=== PATIENT | male | born 1970 | race Caucasian/White ===

== ENCOUNTER 2016-12-10 21:01 | Emergency (ER) | payer MEDICAID, OTHER ==
[~2016-12-10 21:01] MED LIST: XANA0.5T PO
[2016-12-10] MEDS ORDERED: KETOROLAC 30 MG/ML VIAL (J1885) As Ordered ONE (23:04)
[2016-12-10 23:13] LABS: BASO # 0.3 K/mm3 (0.0-0.2); BASO % 2.9 % (0.0-1.0); EOS # 0.3 K/mm3 (0.0-0.50); EOS % 3.2 % (0.0-3.0); LARGE UNSTAINED CELL # 0.3 K/mm3 (0.0-0.4); LARGE UNSTAINED CELL % 2.6 % (0.0-4.0); LYMPH % 27.8 % (24.0-44.0); MEAN CORPUSCULAR HEMOGLOBIN 29.7 pg (27.0-33.0); MEAN CORPUSCULAR HGB CONC 33.2 g/dl (32.0-36.5); MEAN CORPUSCULAR VOLUME 89.6 fl (80.0-96.0); MONO # 0.7 K/mm3 (0.0-0.8); MONO % 7.4 % (0.0-5.0); NEUTROPHILS # 5.6 K/mm3 (1.8-7.7); NEUTROPHILS % 56.2 % (36.0-66.0); PLATELET COUNT, AUTOMATED 258 k/mm3 (150-450); RED CELL DISTRIBUTION WIDTH 13.6 % (11.5-14.5)
[2016-12-10 23:34] LABS: ALBUMIN 3.8 GM/DL (3.2-5.2); ALBUMIN/GLOBULIN RATIO 1.31 (1.00-1.93); ALKALINE PHOSPHATASE 100 U/L (45-117); ALT/SGPT 47 U/L (12-78); ANION GAP 9 MEQ/L (8-16); AST/SGOT 20 U/L (15-37); BILIRUBIN,DIRECT < 0.1 MG/DL (0.0-0.2); BILIRUBIN,TOTAL 0.4 MG/DL (0.2-1.0); BLOOD UREA NITROGEN 15 MG/DL (7-18); CALCIUM LEVEL 8.8 MG/DL (8.5-10.1); CARBON DIOXIDE LEVEL 27 MEQ/L (21-32); CHLORIDE LEVEL 106 MEQ/L (98-107); CREATININE FOR GFR 1.13 MG/DL (0.70-1.30); GLOMERULAR FILTRATION RATE > 60.0 (>60); GLUCOSE, FASTING 95 MG/DL (70-105); POTASSIUM SERUM 4.3 MEQ/L (3.5-5.1); SODIUM LEVEL 142 MEQ/L (136-145); TOTAL PROTEIN 6.7 GM/DL (6.4-8.2)
[2016-12-10] MEDS ORDERED: ISOVUE-370 76% 100ML VIAL (Q9967) As Ordered ONE (23:51)
--- NOTE | 2016-12-11 00:30 | REPUSA ---
CLINICAL HISTORY: Abdominal pain. TECHNIQUE: Multiple axial, sagittal and coronal CT images were obtained through the abdomen and pelvi s after administration of intravenous contrast material. COMMENTS: The liver is mildly enlarged with decreased attenuation without mass or defect. There is no intra or extrahepatic biliary ductal dilatation. The spleen is normal. The gallbladder is within normal limits . The pancreas is of normal contour and attenuation characteristics. There is no evidence of adrenal mass. Both kidneys demonstrate prompt and equal nephrograms. The kidneys are normal in size, shape and conf iguration. There is no evidence of renal or ureteral mass. No renal or ureteral calculi are identifie d. There is no hydroureter or hydronephrosis. Diffuse thickening of the tip of the appendix. Surrounding free fluid and fat stranding. There is no bowel wall thickening. No evidence for small or large bowel obstruction. There is no evidence of abdo nuno ascites or lymphadenopathy. There is no evidence of intrinsic or extrinsic bladder mass. There is no pelvic ascites or lymphadeno maria c. Mild prostatomegaly. Diffuse thickening of the wall of the bladder. Images of the lung bases show no evidence of pleural or parenchymal mass. There are no pleural effusi ons. The bony structures are free of lytic or blastic lesions. Bilateral fat containing inguinal hernias without incarceration. IMPRESSION: Mild changes of acute appendicitis. Surrounding fat stranding and free fluid. Bilateral fat containing inguinal hernias without incarceration. Hepatomegaly with fatty liver infiltration. Thank you for your kind referral of this patient.
[2016-12-11] MEDS ORDERED: NORCO 5/325MG TABLET (BULK) As Ordered ONE (01:50)
--- NOTE | 2016-12-11 02:02 | EDDOCDS ---
Physician Documentation [facility] Name: Khai Reyes Age: 46 yrs Sex: Male : 1970 Arrival Date: 12/10/2016 Time: 21:01 Bed I2 / M2 Private MD: NONE Disposition: 12/11/16 01:41 Discharged to Home/Self Care. Impression: Inguinal hernia - BILATERAL, Other abdominal pain. - Condition is Stable. - Discharge Instructions: Abdominal Pain, Adult, Inguinal Hernia, Adult. - Prescriptions for [place] 5- 325 mg Oral Tablet - take 1 tablet by ORAL route every 6 hours As needed MDD: 4 tabs; 10 tablet. - Medication Reconciliation, Local Pharmacy Hours form. - Follow up: Shaheen Lucia MD; When: 1 - 2 days; Reason: Recheck today's complaints, Continuance of care. - Problem is new. - Symptoms have improved. Historical: - Allergies: Codeine Sulfate; PENICILLINS; - Home Meds: 1. Xanax 0.5 mg Oral tab 1 tab 3 times per day (Last dose: 12/10/2016 12:00) 2. losartan oral oral Unknown once daily for Hypertension (Last dose: 12/09/2016) 3. allopurinol 100 mg Oral tab 1 tab nightly for Gout (Last dose: 12/09/2016) - PMHx: Anxiety; Gout; Hypertension; - PSHx: Orthopedic Surgery; Hernia repair; achilles tendon surgery; - Social history: Smoking status: Patient states was never smoker of tobacco. No barriers to communication noted, The patient speaks fluent Kinyarwanda, Speaks appropriately for age. - Family history: Not pertinent. - : The pt / caregiver states he / she is not on anticoagulants. Home medication list is obtained from the patient. - Exposure Risk Screening:: None identified. Vital Signs: 12/10 21:03 BP 157 / 95; Pulse 85; Resp 18 S; Temp 97.3(O); Pulse Ox 98% on R/A; Weight 99.79 kg / dd6 220 lbs (R); Height 5 ft. 8 in. (172.72 cm) (R); 12/11 01:51 BP 133 / 89; Pulse 55; Resp 18; Temp 97; Pulse Ox 98% ; jlm 12/10 21:03 Body Mass Index 33.45 (99.79 kg, 172.72 cm) dd6 MDM: 12/10 22:25 [facility] Payment Agreement was scanned into [employer] and attached to record. kf3 22:44 Undress patient appropriately for examination ordered. mo1 22:44 IV Saline Lock ordered. mo1 22:44 NS 0.9% 1000 ml IV at bolus once ordered. mo1 22:45 Basic Metabolic Profile Ordered. EDMS 22:45 CBC with Diff Ordered. EDMS 22:45 Liver Profile Ordered. EDMS 22:45 Urinalysis Ordered. EDMS 22:45 NOTHING BY MOUTH+DIET ordered. EDMS 22:46 ketorolac 30 mg IVP once ordered. mo1 22:46 Financial registration complete. kf3 22:46 Lactic Acid (Flower tube on ice) Ordered. EDMS 22:47 CT ABD & PELVIS: IV Contrast Only Ordered. EDMS 23:46 Lactic Acid (Flower tube on ice) Reviewed. mo1 23:46 Liver Profile Reviewed. mo1 23:47 Urinalysis Reviewed. mo1 23:47 CBC with Diff Reviewed. mo1 23:47 Basic Metabolic Profile Reviewed. mo1 12/11 01:11 CT ABD & PELVIS: IV Contrast Only Reviewed. mo1 01:45 HYDROcodone-acetaminophen 4 pack- 5 mg-325 mg 1 packets PO Per package directions; ck7 Dispense with patient. 1 po q4h prn for pain ordered. Administered Medications: 12/10 23:10 Drug: NS 0.9% 1000 ml [sodium chloride 0.9 % intravenous solution] Route: IV; Rate: lf1 bolus; Site: right antecubital; 23:12 Drug: ketorolac 30 mg [ketorolac 30 mg/mL (1 mL) injection solution (1 mL)] Route: IVP; lf1 Site: right antecubital; 12/11 02:01 Drug: HYDROcodone-acetaminophen 4 pack- 1 packets [hydrocodone 5 mg-acetaminophen 325 slm mg tablet (1 tabs)] {Co-Signature: lf1 (Katherine Persaud RN).} Route: PO; Signatures: Dispatcher [employer] EDMS Starr Nowak RN RN kmg1 Katherine Persaud RN RN lf1 Fidricor, Teddy, Reg Reg kf3 Pipe Hernández, NESTOR-C RPA-Cck7 Thuan Martin PA PA mo1 Gaby Calero,NEWSPAPER COLUMNIST NEWSPAPER COLUMNIST slm Katherine Persaud RN lf1 The chart was reviewed and I authenticate all verbal orders and agree with the evaluation and treatment provided.Attachments: 12/10 22:25 [facility] Payment Agreement kf3 MTDD
--- NOTE | 2016-12-11 02:02 | EDDOCDS ---
Nurse's Notes [facility] Name: Khai Reyes Age: 46 yrs Sex: Male : 1970 Arrival Date: 12/10/2016 Time: 21:01 Bed I2 / M2 Private MD: ALVARO Diagnosis: Inguinal hernia-BILATERAL;Other abdominal pain Presentation: 12/10 21:14 Presenting complaint: Patient states: Right groin pain since yesterday. Increases with kmg1 cough. No know injury. Adult Sepsis Screening: The patient does not have new or worsening altered mentation. Patient's respiratory rate is less than 22. Systolic blood pressure is greater than 100. Patient has a qSOFA score of 0- Negative Sepsis Screen. Suicide/Homicide risk assessment- the patient denies having any suicidal and/or homicidal ideations and does not present with any other emotional, behavioral or mental health complaints. Status: Patient is not a account manager forest service or dependent. Transition of care: patient was not received from another setting of care. 21:14 Acuity: MARISOL Level 4 [facility] 21:14 Method Of Arrival: Walkin/Carried/Asstd km Triage Assessment: 21:17 General: Appears in no apparent distress, uncomfortable, Behavior is appropriate for [facility] age, cooperative, pleasant. Pain: Location: right femoral area Pain currently is 6 out of 10 on a pain scale. At worst was 10 out of 10 on a pain scale. Quality of pain is described as sharp. HIV screening NA for this visit Offered previously. GI: No deficits noted. Historical: - Allergies: Codeine Sulfate; PENICILLINS; - Home Meds: 1. Xanax 0.5 mg Oral tab 1 tab 3 times per day (Last dose: 12/10/2016 12:00) 2. losartan oral oral Unknown once daily for Hypertension (Last dose: 12/09/2016) 3. allopurinol 100 mg Oral tab 1 tab nightly for Gout (Last dose: 12/09/2016) - PMHx: Anxiety; Gout; Hypertension; - PSHx: Orthopedic Surgery; Hernia repair; achilles tendon surgery; - Social history: Smoking status: Patient states was never smoker of tobacco. No barriers to communication noted, The patient speaks fluent Bangladeshi, Speaks appropriately for age. - Family history: Not pertinent. - : The pt / caregiver states he / she is not on anticoagulants. Home medication list is obtained from the patient. - Exposure Risk Screening:: None identified. Screenin:10 Screening information is obtained from the patient. Fall risk: No risks identified. lf1 Assistance ADL's: requires no assistance with activities of daily living. Abuse/DV Screen: The patient / caregiver reports he/she is: not in a situation that causes fear, pain or injury. Nutritional screening: No deficits noted. Advance Directives: Currently, there is no health care proxy. home support is adequate. Assessment: 23:00 General: Appears in no apparent distress, Behavior is cooperative. General: watching ms2 football game. Neurological: Level of Consciousness is awake, alert, obeys commands. Respiratory: No deficits noted. Airway is patent Respiratory effort is even, unlabored, Respiratory pattern is regular, symmetrical. GI: Abdomen is flat, non- distended. Derm: Skin is pink, warm & dry. Musculoskeletal: Range of motion intact in all extremities. 23:10 Adult Sepsis Screening: The patient does not have new or worsening altered mentation. lf1 Patient's respiratory rate is less than 22. Systolic blood pressure is greater than 100. Patient has a qSOFA score of 0- Negative Sepsis Screen. General: Appears in no apparent distress, comfortable, Behavior is cooperative. Pain: Location: groin Pain currently is 7 out of 10 on a pain scale. Neurological: Level of Consciousness is awake, alert, Oriented to person, place, time. EENT: No deficits noted. Cardiovascular: No deficits noted. Respiratory: Respiratory effort is even, unlabored, Breath sounds are clear bilaterally. GI: Abdomen is non- distended Bowel sounds present X 4 quads. Abd is soft and non tender X 4 quads. Denies nausea, vomiting, last BM this morning. Derm: Skin is normal. Injury Description: No known injury. 12/11 00:15 General: Appears uncomfortable, Behavior is cooperative. Neurological: Level of lf1 Consciousness is awake, alert. Respiratory: Respiratory effort is even, unlabored. Derm: Skin is normal. 01:55 Reassessment: Patient appears in no apparent distress at this time. [facility] Vital Signs: 12/10 21:03 BP 157 / 95; Pulse 85; Resp 18 S; Temp 97.3(O); Pulse Ox 98% on R/A; Weight 99.79 kg dd6 (R); Height 5 ft. 8 in. (172.72 cm) (R); 12/11 01:51 BP 133 / 89; Pulse 55; Resp 18; Temp 97; Pulse Ox 98% ; jlm 12/10 21:03 Body Mass Index 33.45 (99.79 kg, 172.72 cm) dd6 Vitals: 12/10 21:03 Log In Time: December 10, 2016 at 21:01. dd6 ED Course: 21:03 Patient visited by Vitaliy Schmidt PCA. dd6 21:03 NONE is Private Physician. dd6 21:03 Patient moved to Waiting dd6 21:04 Patient moved to Pre RCE dd6 21:15 Triage Initiated kmg1 21:50 Patient moved to Triage 2 ar3 22:25 [facility] Payment Agreement was scanned into [employer] and attached to record. kf3 22:27 Thuan Martin PA is PHCP. mo1 22:27 Oliver Basilio DO is Attending Physician. mo1 22:34 Patient visited by Thuan Martin PA. mo1 22:45 Patient moved to I2 / M2 ar3 22:49 Urinalysis Sent. ar3 23:00 Inserted saline lock: 20 gauge in right antecubital area The patient tolerated the ms2 procedure well. 23:03 Patient visited by Juanjo Rodríguez RN. ms2 23:03 Lactic Acid (Flower tube on ice) Sent. ms2 23:03 Basic Metabolic Profile Sent. ms2 23:03 CBC with Diff Sent. ms2 23:04 Liver Profile Sent. ms2 23:10 The patient / caregiver is instructed regarding the plan of care and ED course. Patient lf1 has correct armband on for positive identification. Placed in gown. Bed in low position. Call light in reach. Door closed. Noise minimized. Lights dimmed. 23:13 Patient visited by Katherine Persaud RN. lf1 12/11 00:17 Patient visited by Tere Brown, Aircraft Worker. jlm 00:52 CT ABD & PELVIS: IV Contrast Only Returned. EDMS 01:20 Patient visited by Tere Brown, Aircraft Worker. jlm 01:26 Shaheen Lucia MD is Hospitalizing Provider. mo1 01:37 PHCP role handed off by Thuan Martin PA ck7 01:37 Pipe Hern[facility]dez [facility]C [facility] ck7 01:39 Shaheen Lucia MD is Referral Physician. ck7 01:51 Patient visited by Tere Brown Aircraft Worker. jlm 01:56 No procedures done that require assistance. slm 01:56 Discontinued lock intact, bleeding controlled, pressure dressing applied, No slm redness/swelling at site. Administered Medications: 12/10 23:10 Drug: NS 0.9% 1000 ml [sodium chloride 0.9 % intravenous solution] Route: IV; Rate: lf1 bolus; Site: right antecubital; 23:12 Drug: ketorolac 30 mg [ketorolac 30 mg/mL (1 mL) injection solution (1 mL)] Route: IVP; lf1 Site: right antecubital; 12/11 02:01 Drug: HYDROcodone-acetaminophen 4 pack- 1 packets [hydrocodone 5 mg-acetaminophen 325 slm mg tablet (1 tabs)] {Co-Signature: lf1 (Katherine Persaud RN).} Route: PO; Order Results: Lab Order: Basic Metabolic Profile; SPEC'M 12/10/16 22:56 Test: GLUCOSE, FASTING; Value: 95; Range: 70-105; Units: MG/DL; Status: F Test: BLOOD UREA NITROGEN; Value: 15; Range: 7-18; Units: MG/DL; Status: F Test: CREATININE FOR GFR; Value: 1.13; Range: 0.70-1.30; Units: MG/DL; Status: F Test: GLOMERULAR FILTRATION RATE; Value: > 60.0; Range: >60; Status: F Test: SODIUM LEVEL; Value: 142; Range: 136-145; Units: MEQ/L; Status: F Test: POTASSIUM SERUM; Value: 4.3; Range: 3.5-5.1; Units: MEQ/L; Status: F Test: CHLORIDE LEVEL; Value: 106; Range: 98-107; Units: MEQ/L; Status: F Test: CARBON DIOXIDE LEVEL; Value: 27; Range: 21-32; Units: MEQ/L; Status: F Test: ANION GAP; Value: 9; Range: 8-16; Units: MEQ/L; Status: F Test: CALCIUM LEVEL; Value: 8.8; Range: 8.5-10.1; Units: MG/DL; Status: F Test Note: ; Units are mL/min/1.73 m2 Chronic Kidney Disease Staging per NKF: Stage I & II GFR >=60 Normal to Mildly Decreased Stage III GFR 30-59 Moderately Decreased Stage IV GFR 15-29 Severely Decreased Stage V GFR <15 Very Little GFR Left ESRD GFR <15 on ENVIRONMENTAL SERVICES SPECIALIST Lab Order: CBC with Diff; SPEC'M 12/10/16 22:56 Test: WHITE BLOOD COUNT; Value: 10.0; Range: 4.0-10.0; Units: K/mm3; Status: F Test: RED BLOOD COUNT; Value: 5.19; Range: 4.30-6.10; Units: M/mm3; Status: F Test: HEMOGLOBIN; Value: 15.4; Range: 14.0-18.0; Units: g/dl; Status: F Test: HEMATOCRIT; Value: 46.5; Range: 42.0-52.0; Units: %; Status: F Test: MEAN CORPUSCULAR VOLUME; Value: 89.6; Range: 80.0-96.0; Units: fl; Status: F Test: MEAN CORPUSCULAR HEMOGLOBIN; Value: 29.7; Range: 27.0-33.0; Units: pg; Status: F Test: MEAN CORPUSCULAR HGB CONC; Value: 33.2; Range: 32.0-36.5; Units: g/dl; Status: F Test: RED CELL DISTRIBUTION WIDTH; Value: 13.6; Range: 11.5-14.5; Units: %; Status: F Test: PLATELET COUNT, AUTOMATED; Value: 258; Range: 150-450; Units: k/mm3; Status: F Test: NEUTROPHILS %; Value: 56.2; Range: 36.0-66.0; Units: %; Status: F Test: LYMPH %; Value: 27.8; Range: 24.0-44.0; Units: %; Status: F Test: MONO %; Value: 7.4; Range: 0.0-5.0; Abnormal: Above high normal; Units: %; Status: F Test: EOS %; Value: 3.2; Range: 0.0-3.0; Abnormal: Above high normal; Units: %; Status: F Test: BASO %; Value: 2.9; Range: 0.0-1.0; Abnormal: Above high normal; Units: %; Status: F Test: LARGE UNSTAINED CELL %; Value: 2.6; Range: 0.0-4.0; Units: %; Status: F Test: NEUTROPHILS #; Value: 5.6; Range: 1.8-7.7; Units: K/mm3; Status: F Test: LYMPH #; Value: 3.0; Range: 1.5-4.5; Units: K/mm3; Status: F Test: MONO #; Value: 0.7; Range: 0.0-0.8; Units: K/mm3; Status: F Test: EOS #; Value: 0.3; Range: 0.0-0.50; Units: K/mm3; Status: F Test: BASO #; Value: 0.3; Range: 0.0-0.2; Abnormal: Above high normal; Units: K/mm3; Status: F Test: LARGE UNSTAINED CELL #; Value: 0.3; Range: 0.0-0.4; Units: K/mm3; Status: F Lab Order: Liver Profile; SPEC'M 12/10/16 22:56 Test: AST/SGOT; Value: 20; Range: 15-37; Units: U/L; Status: F Test: ALT/SGPT; Value: 47; Range: 12-78; Units: U/L; Status: F Test: ALKALINE PHOSPHATASE; Value: 100; Range: 45-117; Units: U/L; Status: F Test: BILIRUBIN,TOTAL; Value: 0.4; Range: 0.2-1.0; Units: MG/DL; Status: F Test: BILIRUBIN,DIRECT; Value: < 0.1; Range: 0.0-0.2; Units: MG/DL; Status: F Test: TOTAL PROTEIN; Value: 6.7; Range: 6.4-8.2; Units: GM/DL; Status: F Test: ALBUMIN; Value: 3.8; Range: 3.2-5.2; Units: GM/DL; Status: F Test: ALBUMIN/GLOBULIN RATIO; Value: 1.31; Range: 1.00-1.93; Status: F Lab Order: Urinalysis; SPEC'M 12/10/16 22:47 Test: APPEARANCE, URINE; Value: CLEAR; Range: CLEAR; Status: F Test: COLOR, URINE; Value: YELLOW; Range: YELLOW; Status: F Test: PH,URINE; Value: 6.0; Range: 5.0-9.0; Units: UNITS; Status: F Test: SPECIFIC GRAVITY URINE AUTO; Value: 1.019; Range: 1.002-1.035; Status: F Test: PROTEIN, URINE AUTO; Value: NEGATIVE; Range: NEGATIVE; Units: mg/dL; Status: F Test: GLUCOSE, URINE (UA) AUTO; Value: NEGATIVE; Range: NEGATIVE; Units: mg/dL; Status: F Test: KETONE, URINE AUTO; Value: NEGATIVE; Range: NEGATIVE; Units: mg/dL; Status: F Test: UROBILINOGEN, URINE AUTO; Value: 0.2; Range: 0.0-2.0; Units: mg/dL; Status: F Test: BILIRUBIN, URINE AUTO; Value: NEGATIVE; Range: NEGATIVE; Status: F Test: NITRITE, URINE AUTO; Value: NEGATIVE; Range: NEGATIVE; Status: F Test: LEUKOCYTE ESTERASE, URINE AUTO; Value: NEGATIVE; Range: NEGATIVE; Status: F Test: BLOOD, URINE BLOOD; Value: NEGATIVE; Range: NEGATIVE; Status: F Test: WBC, URINE AUTO; Value: 0; Range: 0-3; Units: /HPF; Status: F Test: RBC, URINE AUTO; Value: 1; Range: 0-3; Units: /HPF; Status: F Test: BACTERIA, URINE AUTO; Value: NEGATIVE; Range: NEGATIVE; Status: F Test: SQUAMOUS EPITHELIAL CELL UR AU; Value: 0; Range: 0-6; Units: /HPF; Status: F Test: HYALINE CAST, URINE AUTO; Value: 0; Range: 0-1; Units: /LPF; Status: F Test: AMORPHOUS SEDIMENT; Value: SMALL; Range: NEGATIVE; Abnormal: Above high normal; Status: F Lab Order: Lactic Acid (Flower tube on ice); SPEC'M 12/10/16 22:56 Test: LACTIC ACID LEVEL, LACTATE; Value: 0.8; Range: 0.4-2.0; Units: MMOL/L; Status: F Radiology Order: CT ABD & PELVIS: IV Contrast Only Test: CT ABD & PELVIS: IV Contrast Only REASON FOR EXAMINATION: right inguinal hernia; ; CLINICAL HISTORY: Abdominal pain.; TECHNIQUE: Multiple axial, sagittal and coronal CT images were obtained through the abdomen and pelvi; s after administration of intravenous contrast material.; COMMENTS:; The liver is mildly enlarged with decreased attenuation without mass or defect. There is no intra or; extrahepatic biliary ductal dilatation. The spleen is normal. The gallbladder is within normal limits; . The pancreas is of normal contour and attenuation characteristics. There is no evidence of adrenal; mass.; Both kidneys demonstrate prompt and equal nephrograms. The kidneys are normal in size, shape and conf; iguration. There is no evidence of renal or ureteral mass. No renal or ureteral calculi are identifie; d. There is no hydroureter or hydronephrosis.; Diffuse thickening of the tip of the appendix. Surrounding free fluid and fat stranding. There is no; bowel wall thickening. No evidence for small or large bowel obstruction. There is no evidence of abdo; nuno ascites or lymphadenopathy.; There is no evidence of intrinsic or extrinsic bladder mass. There is no pelvic ascites or lymphadeno; maria c. Mild prostatomegaly. Diffuse thickening of the wall of the bladder.; Images of the lung bases show no evidence of pleural or parenchymal mass. There are no pleural effusi; ons.; The bony structures are free of lytic or blastic lesions.; Bilateral fat containing inguinal hernias without incarceration.; IMPRESSION:; Mild changes of acute appendicitis.; Surrounding fat stranding and free fluid.; Bilateral fat containing inguinal hernias without incarceration.; Hepatomegaly with fatty liver infiltration.; Thank you for your kind referral of this patient.; ; Outcome: 01:26 Decision to Hospitalize by Provider. mo1 01:41 Discharge ordered by Provider. ck7 01:56 Discharge Assessment: Patient awake, alert and oriented x 3. No cognitive and/or slm functional deficits noted. Patient verbalized understanding of disposition instructions. patient administered narcotics - no. The following High Risk Discharge criteria are identified: None. Discharged to home ambulatory. Condition: good. Discharge instructions given to patient, Instructed on discharge instructions, follow up and referral plans. medication usage, no driving heavy equipment, Demonstrated understanding of instructions, medications, Pt was receptive of discharge instructions/ teaching. Prescriptions given X 1. CT Study completed. Property :Personal belongings accompany Pt. 02:01 Patient left the ED. slm Signatures: Dispatcher [employer] EDMS Juanjo Rodríguez,RN RN ms2 Starr Nowak, RN RN kmg1 Katherine Persaud RN RN lf1 Ban[employer]eddy laws, Reg Reg kf3 Vitaliy Schmidt, ALLIED HEALTH INSTRUCTOR ALLIED HEALTH INSTRUCTOR dd6 Isela Walker, ALLIED HEALTH INSTRUCTOR ALLIED HEALTH INSTRUCTOR ar3 Pipe Hernández, RPA-C RPA-Cck7 Thuan Martin PA PA mo1 Gaby Calero,COMMERCIAL FINANCE MANAGER COMMERCIAL FINANCE MANAGER Tere Matamoros, Aircraft Worker Unit [facility] Katherine Persaud RN lf1 MTDD
--- NOTE | 2016-12-13 03:02 | EDDOCDS ---
Physician Documentation [facility] Name: Khai Reyes Age: 46 yrs Sex: Male : 1970 Arrival Date: 12/10/2016 Time: 21:01 Bed I2 / M2 Private MD: NONE Disposition: 12/11/16 01:41 Discharged to Home/Self Care. Impression: Inguinal hernia - BILATERAL, Other abdominal pain. - Condition is Stable. - Discharge Instructions: Abdominal Pain, Adult, Inguinal Hernia, Adult. - Prescriptions for [place] 5- 325 mg Oral Tablet - take 1 tablet by ORAL route every 6 hours As needed MDD: 4 tabs; 10 tablet. - Medication Reconciliation, Local Pharmacy Hours form. - Follow up: Shaheen Lucia MD; When: 1 - 2 days; Reason: Recheck today's complaints, Continuance of care. - Problem is new. - Symptoms have improved. Historical: - Allergies: Codeine Sulfate; PENICILLINS; - Home Meds: 1. Xanax 0.5 mg Oral tab 1 tab 3 times per day (Last dose: 12/10/2016 12:00) 2. losartan oral oral Unknown once daily for Hypertension (Last dose: 12/09/2016) 3. allopurinol 100 mg Oral tab 1 tab nightly for Gout (Last dose: 12/09/2016) - PMHx: Anxiety; Gout; Hypertension; - PSHx: Orthopedic Surgery; Hernia repair; achilles tendon surgery; - Social history: Smoking status: Patient states was never smoker of tobacco. No barriers to communication noted, The patient speaks fluent Icelandic, Speaks appropriately for age. - Family history: Not pertinent. - : The pt / caregiver states he / she is not on anticoagulants. Home medication list is obtained from the patient. - Exposure Risk Screening:: None identified. Vital Signs: 12/10 21:03 BP 157 / 95; Pulse 85; Resp 18 S; Temp 97.3(O); Pulse Ox 98% on R/A; Weight 99.79 kg / dd6 220 lbs (R); Height 5 ft. 8 in. (172.72 cm) (R); 12/11 01:51 BP 133 / 89; Pulse 55; Resp 18; Temp 97; Pulse Ox 98% ; jlm 12/10 21:03 Body Mass Index 33.45 (99.79 kg, 172.72 cm) dd6 MDM: 12/10 22:25 [facility] Payment Agreement was scanned into [employer] and attached to record. kf3 22:44 Undress patient appropriately for examination ordered. mo1 22:44 IV Saline Lock ordered. mo1 22:44 NS 0.9% 1000 ml IV at bolus once ordered. mo1 22:45 Basic Metabolic Profile Ordered. EDMS 22:45 CBC with Diff Ordered. EDMS 22:45 Liver Profile Ordered. EDMS 22:45 Urinalysis Ordered. EDMS 22:45 NOTHING BY MOUTH+DIET ordered. EDMS 22:46 ketorolac 30 mg IVP once ordered. mo1 22:46 Financial registration complete. kf3 22:46 Lactic Acid (Flower tube on ice) Ordered. EDMS 22:47 CT ABD & PELVIS: IV Contrast Only Ordered. EDMS 23:46 Lactic Acid (Flower tube on ice) Reviewed. mo1 23:46 Liver Profile Reviewed. mo1 23:47 Urinalysis Reviewed. mo1 23:47 CBC with Diff Reviewed. mo1 23:47 Basic Metabolic Profile Reviewed. mo1 12/11 01:11 CT ABD & PELVIS: IV Contrast Only Reviewed. mo1 01:45 HYDROcodone-acetaminophen 4 pack- 5 mg-325 mg 1 packets PO Per package directions; ck7 Dispense with patient. 1 po q4h prn for pain ordered. 11:56 T-Sheet-- Draft Copy was scanned into [employer] and attached to record. gb 11:57 Radiology Report was scanned into [employer] and attached to record. gb Administered Medications: 12/10 23:10 Drug: NS 0.9% 1000 ml [sodium chloride 0.9 % intravenous solution] Route: IV; Rate: lf1 bolus; Site: right antecubital; 23:12 Drug: ketorolac 30 mg [ketorolac 30 mg/mL (1 mL) injection solution (1 mL)] Route: IVP; lf1 Site: right antecubital; 12/11 02:01 Drug: HYDROcodone-acetaminophen 4 pack- 1 packets [hydrocodone 5 mg-acetaminophen 325 slm mg tablet (1 tabs)] {Co-Signature: lf1 (Katherine Persaud RN).} Route: PO; Signatures: Dispatcher [employer] EDStarr Granados RN RN [facility] Linda Izquierdo, Reg Reg gb Persaud,ANALIA Murphy RN lf1 Teddy Lewis, Reg Reg kf3 Pipe Hernández, RPA-C RPA-Cck7 Thuan Martin PA PA mo1 Gbay Calero,CRIME ANALYST CRIME ANALYST slm Katherine Persaud RN lf1 The chart was reviewed and I authenticate all verbal orders and agree with the evaluation and treatment provided.Attachments: 12/10 22:25 [facility] Payment Agreement kf3 12/11 11:56 T-Sheet-- Draft Copy gb Chart Complete MTDD
--- NOTE | 2016-12-13 03:02 | EDDOCDS ---
Nurse's Notes [facility] Name: Khai Reyes Age: 46 yrs Sex: Male : 1970 Arrival Date: 12/10/2016 Time: 21:01 Bed I2 / M2 Private MD: ALVARO Diagnosis: Inguinal hernia-BILATERAL;Other abdominal pain Presentation: 12/10 21:14 Presenting complaint: Patient states: Right groin pain since yesterday. Increases with kmg1 cough. No know injury. Adult Sepsis Screening: The patient does not have new or worsening altered mentation. Patient's respiratory rate is less than 22. Systolic blood pressure is greater than 100. Patient has a qSOFA score of 0- Negative Sepsis Screen. Suicide/Homicide risk assessment- the patient denies having any suicidal and/or homicidal ideations and does not present with any other emotional, behavioral or mental health complaints. Status: Patient is not a supervisor kosher dietary service or dependent. Transition of care: patient was not received from another setting of care. 21:14 Acuity: MARISOL Level 4 [facility] 21:14 Method Of Arrival: Walkin/Carried/Asstd km Triage Assessment: 21:17 General: Appears in no apparent distress, uncomfortable, Behavior is appropriate for [facility] age, cooperative, pleasant. Pain: Location: right femoral area Pain currently is 6 out of 10 on a pain scale. At worst was 10 out of 10 on a pain scale. Quality of pain is described as sharp. HIV screening NA for this visit Offered previously. GI: No deficits noted. Historical: - Allergies: Codeine Sulfate; PENICILLINS; - Home Meds: 1. Xanax 0.5 mg Oral tab 1 tab 3 times per day (Last dose: 12/10/2016 12:00) 2. losartan oral oral Unknown once daily for Hypertension (Last dose: 12/09/2016) 3. allopurinol 100 mg Oral tab 1 tab nightly for Gout (Last dose: 12/09/2016) - PMHx: Anxiety; Gout; Hypertension; - PSHx: Orthopedic Surgery; Hernia repair; achilles tendon surgery; - Social history: Smoking status: Patient states was never smoker of tobacco. No barriers to communication noted, The patient speaks fluent Swiss, Speaks appropriately for age. - Family history: Not pertinent. - : The pt / caregiver states he / she is not on anticoagulants. Home medication list is obtained from the patient. - Exposure Risk Screening:: None identified. Screenin:10 Screening information is obtained from the patient. Fall risk: No risks identified. lf1 Assistance ADL's: requires no assistance with activities of daily living. Abuse/DV Screen: The patient / caregiver reports he/she is: not in a situation that causes fear, pain or injury. Nutritional screening: No deficits noted. Advance Directives: Currently, there is no health care proxy. home support is adequate. Assessment: 23:00 General: Appears in no apparent distress, Behavior is cooperative. General: watching ms2 football game. Neurological: Level of Consciousness is awake, alert, obeys commands. Respiratory: No deficits noted. Airway is patent Respiratory effort is even, unlabored, Respiratory pattern is regular, symmetrical. GI: Abdomen is flat, non- distended. Derm: Skin is pink, warm & dry. Musculoskeletal: Range of motion intact in all extremities. 23:10 Adult Sepsis Screening: The patient does not have new or worsening altered mentation. lf1 Patient's respiratory rate is less than 22. Systolic blood pressure is greater than 100. Patient has a qSOFA score of 0- Negative Sepsis Screen. General: Appears in no apparent distress, comfortable, Behavior is cooperative. Pain: Location: groin Pain currently is 7 out of 10 on a pain scale. Neurological: Level of Consciousness is awake, alert, Oriented to person, place, time. EENT: No deficits noted. Cardiovascular: No deficits noted. Respiratory: Respiratory effort is even, unlabored, Breath sounds are clear bilaterally. GI: Abdomen is non- distended Bowel sounds present X 4 quads. Abd is soft and non tender X 4 quads. Denies nausea, vomiting, last BM this morning. Derm: Skin is normal. Injury Description: No known injury. 12/11 00:15 General: Appears uncomfortable, Behavior is cooperative. Neurological: Level of lf1 Consciousness is awake, alert. Respiratory: Respiratory effort is even, unlabored. Derm: Skin is normal. 01:55 Reassessment: Patient appears in no apparent distress at this time. [facility] Vital Signs: 12/10 21:03 BP 157 / 95; Pulse 85; Resp 18 S; Temp 97.3(O); Pulse Ox 98% on R/A; Weight 99.79 kg dd6 (R); Height 5 ft. 8 in. (172.72 cm) (R); 12/11 01:51 BP 133 / 89; Pulse 55; Resp 18; Temp 97; Pulse Ox 98% ; jlm 12/10 21:03 Body Mass Index 33.45 (99.79 kg, 172.72 cm) dd6 Vitals: 12/10 21:03 Log In Time: December 10, 2016 at 21:01. dd6 ED Course: 21:03 Patient visited by Vitaliy Schmidt PCA. dd6 21:03 NONE is Private Physician. dd6 21:03 Patient moved to Waiting dd6 21:04 Patient moved to Pre RCE dd6 21:15 Triage Initiated kmg1 21:50 Patient moved to Triage 2 ar3 22:25 [facility] Payment Agreement was scanned into [employer] and attached to record. kf3 22:27 hTuan Martin PA is PHCP. mo1 22:27 Oliver Basilio DO is Attending Physician. mo1 22:34 Patient visited by Thuan Martin PA. mo1 22:45 Patient moved to I2 / M2 ar3 22:49 Urinalysis Sent. ar3 23:00 Inserted saline lock: 20 gauge in right antecubital area The patient tolerated the ms2 procedure well. 23:03 Patient visited by Juanjo Rodríguez RN. ms2 23:03 Lactic Acid (Flower tube on ice) Sent. ms2 23:03 Basic Metabolic Profile Sent. ms2 23:03 CBC with Diff Sent. ms2 23:04 Liver Profile Sent. ms2 23:10 The patient / caregiver is instructed regarding the plan of care and ED course. Patient lf1 has correct armband on for positive identification. Placed in gown. Bed in low position. Call light in reach. Door closed. Noise minimized. Lights dimmed. 23:13 Patient visited by Katherine Persaud RN. lf1 12/11 00:17 Patient visited by Tere Brown, Bridge Worker Apprentice. jlm 00:52 CT ABD & PELVIS: IV Contrast Only Returned. EDMS 01:20 Patient visited by Tere Brown, Bridge Worker Apprentice. jlm 01:26 Shaheen Lucia MD is Hospitalizing Provider. mo1 01:37 PHCP role handed off by Thuan Martin PA ck7 01:37 Pipe Hern[facility]dez [facility] ck7 01:39 Shaheen Lucia MD is Referral Physician. ck7 01:51 Patient visited by Tere Brown, Bridge Worker Apprentice. jlm 01:56 No procedures done that require assistance. slm 01:56 Discontinued lock intact, bleeding controlled, pressure dressing applied, No slm redness/swelling at site. 11:56 T-Sheet-- Draft Copy was scanned into [employer] and attached to record. gb 11:57 Radiology Report was scanned into [employer] and attached to record. gb Administered Medications: 12/10 23:10 Drug: NS 0.9% 1000 ml [sodium chloride 0.9 % intravenous solution] Route: IV; Rate: lf1 bolus; Site: right antecubital; 23:12 Drug: ketorolac 30 mg [ketorolac 30 mg/mL (1 mL) injection solution (1 mL)] Route: IVP; lf1 Site: right antecubital; 12/11 02:01 Drug: HYDROcodone-acetaminophen 4 pack- 1 packets [hydrocodone 5 mg-acetaminophen 325 slm mg tablet (1 tabs)] {Co-Signature: lf1 (Katherine Persaud RN).} Route: PO; Order Results: Lab Order: Basic Metabolic Profile; SPEC'M 12/10/16 22:56 Test: GLUCOSE, FASTING; Value: 95; Range: 70-105; Units: MG/DL; Status: F Test: BLOOD UREA NITROGEN; Value: 15; Range: 7-18; Units: MG/DL; Status: F Test: CREATININE FOR GFR; Value: 1.13; Range: 0.70-1.30; Units: MG/DL; Status: F Test: GLOMERULAR FILTRATION RATE; Value: > 60.0; Range: >60; Status: F Test: SODIUM LEVEL; Value: 142; Range: 136-145; Units: MEQ/L; Status: F Test: POTASSIUM SERUM; Value: 4.3; Range: 3.5-5.1; Units: MEQ/L; Status: F Test: CHLORIDE LEVEL; Value: 106; Range: 98-107; Units: MEQ/L; Status: F Test: CARBON DIOXIDE LEVEL; Value: 27; Range: 21-32; Units: MEQ/L; Status: F Test: ANION GAP; Value: 9; Range: 8-16; Units: MEQ/L; Status: F Test: CALCIUM LEVEL; Value: 8.8; Range: 8.5-10.1; Units: MG/DL; Status: F Test Note: ; Units are mL/min/1.73 m2 Chronic Kidney Disease Staging per NKF: Stage I & II GFR >=60 Normal to Mildly Decreased Stage III GFR 30-59 Moderately Decreased Stage IV GFR 15-29 Severely Decreased Stage V GFR <15 Very Little GFR Left ESRD GFR <15 on NITROGLYCERIN NITRATOR OPERATOR BATCH Lab Order: CBC with Diff; SPEC'M 12/10/16 22:56 Test: WHITE BLOOD COUNT; Value: 10.0; Range: 4.0-10.0; Units: K/mm3; Status: F Test: RED BLOOD COUNT; Value: 5.19; Range: 4.30-6.10; Units: M/mm3; Status: F Test: HEMOGLOBIN; Value: 15.4; Range: 14.0-18.0; Units: g/dl; Status: F Test: HEMATOCRIT; Value: 46.5; Range: 42.0-52.0; Units: %; Status: F Test: MEAN CORPUSCULAR VOLUME; Value: 89.6; Range: 80.0-96.0; Units: fl; Status: F Test: MEAN CORPUSCULAR HEMOGLOBIN; Value: 29.7; Range: 27.0-33.0; Units: pg; Status: F Test: MEAN CORPUSCULAR HGB CONC; Value: 33.2; Range: 32.0-36.5; Units: g/dl; Status: F Test: RED CELL DISTRIBUTION WIDTH; Value: 13.6; Range: 11.5-14.5; Units: %; Status: F Test: PLATELET COUNT, AUTOMATED; Value: 258; Range: 150-450; Units: k/mm3; Status: F Test: NEUTROPHILS %; Value: 56.2; Range: 36.0-66.0; Units: %; Status: F Test: LYMPH %; Value: 27.8; Range: 24.0-44.0; Units: %; Status: F Test: MONO %; Value: 7.4; Range: 0.0-5.0; Abnormal: Above high normal; Units: %; Status: F Test: EOS %; Value: 3.2; Range: 0.0-3.0; Abnormal: Above high normal; Units: %; Status: F Test: BASO %; Value: 2.9; Range: 0.0-1.0; Abnormal: Above high normal; Units: %; Status: F Test: LARGE UNSTAINED CELL %; Value: 2.6; Range: 0.0-4.0; Units: %; Status: F Test: NEUTROPHILS #; Value: 5.6; Range: 1.8-7.7; Units: K/mm3; Status: F Test: LYMPH #; Value: 3.0; Range: 1.5-4.5; Units: K/mm3; Status: F Test: MONO #; Value: 0.7; Range: 0.0-0.8; Units: K/mm3; Status: F Test: EOS #; Value: 0.3; Range: 0.0-0.50; Units: K/mm3; Status: F Test: BASO #; Value: 0.3; Range: 0.0-0.2; Abnormal: Above high normal; Units: K/mm3; Status: F Test: LARGE UNSTAINED CELL #; Value: 0.3; Range: 0.0-0.4; Units: K/mm3; Status: F Lab Order: Liver Profile; SPEC'M 12/10/16 22:56 Test: AST/SGOT; Value: 20; Range: 15-37; Units: U/L; Status: F Test: ALT/SGPT; Value: 47; Range: 12-78; Units: U/L; Status: F Test: ALKALINE PHOSPHATASE; Value: 100; Range: 45-117; Units: U/L; Status: F Test: BILIRUBIN,TOTAL; Value: 0.4; Range: 0.2-1.0; Units: MG/DL; Status: F Test: BILIRUBIN,DIRECT; Value: < 0.1; Range: 0.0-0.2; Units: MG/DL; Status: F Test: TOTAL PROTEIN; Value: 6.7; Range: 6.4-8.2; Units: GM/DL; Status: F Test: ALBUMIN; Value: 3.8; Range: 3.2-5.2; Units: GM/DL; Status: F Test: ALBUMIN/GLOBULIN RATIO; Value: 1.31; Range: 1.00-1.93; Status: F Lab Order: Urinalysis; SPEC'M 12/10/16 22:47 Test: APPEARANCE, URINE; Value: CLEAR; Range: CLEAR; Status: F Test: COLOR, URINE; Value: YELLOW; Range: YELLOW; Status: F Test: PH,URINE; Value: 6.0; Range: 5.0-9.0; Units: UNITS; Status: F Test: SPECIFIC GRAVITY URINE AUTO; Value: 1.019; Range: 1.002-1.035; Status: F Test: PROTEIN, URINE AUTO; Value: NEGATIVE; Range: NEGATIVE; Units: mg/dL; Status: F Test: GLUCOSE, URINE (UA) AUTO; Value: NEGATIVE; Range: NEGATIVE; Units: mg/dL; Status: F Test: KETONE, URINE AUTO; Value: NEGATIVE; Range: NEGATIVE; Units: mg/dL; Status: F Test: UROBILINOGEN, URINE AUTO; Value: 0.2; Range: 0.0-2.0; Units: mg/dL; Status: F Test: BILIRUBIN, URINE AUTO; Value: NEGATIVE; Range: NEGATIVE; Status: F Test: NITRITE, URINE AUTO; Value: NEGATIVE; Range: NEGATIVE; Status: F Test: LEUKOCYTE ESTERASE, URINE AUTO; Value: NEGATIVE; Range: NEGATIVE; Status: F Test: BLOOD, URINE BLOOD; Value: NEGATIVE; Range: NEGATIVE; Status: F Test: WBC, URINE AUTO; Value: 0; Range: 0-3; Units: /HPF; Status: F Test: RBC, URINE AUTO; Value: 1; Range: 0-3; Units: /HPF; Status: F Test: BACTERIA, URINE AUTO; Value: NEGATIVE; Range: NEGATIVE; Status: F Test: SQUAMOUS EPITHELIAL CELL UR AU; Value: 0; Range: 0-6; Units: /HPF; Status: F Test: HYALINE CAST, URINE AUTO; Value: 0; Range: 0-1; Units: /LPF; Status: F Test: AMORPHOUS SEDIMENT; Value: SMALL; Range: NEGATIVE; Abnormal: Above high normal; Status: F Lab Order: Lactic Acid (Flower tube on ice); SPEC'M 12/10/16 22:56 Test: LACTIC ACID LEVEL, LACTATE; Value: 0.8; Range: 0.4-2.0; Units: MMOL/L; Status: F Radiology Order: CT ABD & PELVIS: IV Contrast Only Test: CT ABD & PELVIS: IV Contrast Only REASON FOR EXAMINATION: right inguinal hernia; ; CLINICAL HISTORY: Abdominal pain.; TECHNIQUE: Multiple axial, sagittal and coronal CT images were obtained through the abdomen and pelvi; s after administration of intravenous contrast material.; COMMENTS:; The liver is mildly enlarged with decreased attenuation without mass or defect. There is no intra or; extrahepatic biliary ductal dilatation. The spleen is normal. The gallbladder is within normal limits; . The pancreas is of normal contour and attenuation characteristics. There is no evidence of adrenal; mass.; Both kidneys demonstrate prompt and equal nephrograms. The kidneys are normal in size, shape and conf; iguration. There is no evidence of renal or ureteral mass. No renal or ureteral calculi are identifie; d. There is no hydroureter or hydronephrosis.; Diffuse thickening of the tip of the appendix. Surrounding free fluid and fat stranding. There is no; bowel wall thickening. No evidence for small or large bowel obstruction. There is no evidence of abdo; nuno ascites or lymphadenopathy.; There is no evidence of intrinsic or extrinsic bladder mass. There is no pelvic ascites or lymphadeno; maria c. Mild prostatomegaly. Diffuse thickening of the wall of the bladder.; Images of the lung bases show no evidence of pleural or parenchymal mass. There are no pleural effusi; ons.; The bony structures are free of lytic or blastic lesions.; Bilateral fat containing inguinal hernias without incarceration.; IMPRESSION:; Mild changes of acute appendicitis.; Surrounding fat stranding and free fluid.; Bilateral fat containing inguinal hernias without incarceration.; Hepatomegaly with fatty liver infiltration.; Thank you for your kind referral of this patient.; ; Outcome: 01:26 Decision to Hospitalize by Provider. mo1 01:41 Discharge ordered by Provider. ck7 01:56 Discharge Assessment: Patient awake, alert and oriented x 3. No cognitive and/or slm functional deficits noted. Patient verbalized understanding of disposition instructions. patient administered narcotics - no. The following High Risk Discharge criteria are identified: None. Discharged to home ambulatory. Condition: good. Discharge instructions given to patient, Instructed on discharge instructions, follow up and referral plans. medication usage, no driving heavy equipment, Demonstrated understanding of instructions, medications, Pt was receptive of discharge instructions/ teaching. Prescriptions given X 1. CT Study completed. Property :Personal belongings accompany Pt. 02:01 Patient left the ED. slm Signatures: Dispatcher [employer] EDMS Juanjo Rodríguez,RN RN ms2 Starr Nowak RN RN kmg1 Linda Izquierdo, Reg Reg gb Hung,Katherine,RN RN lf1 Teddy Lewis, Reg Reg kf3 Vitaliy Schmidt, SERVER MANAGER SERVER MANAGER dd6 Isela Walker, SERVER MANAGER SERVER MANAGER ar3 Pipe Hernández, RPA-C RPA-Cck7 Thuan Martin, MADINA PA mo1 Gaby Calero,EXTRACTIONS TECHNICIAN EXTRACTIONS TECHNICIAN slm Tere Brown, Bridge Worker Apprentice [facility] Katherine Persaud RN lf1 Chart Complete [facility]
--- NOTE | 2016-12-13 03:02 | EDDOCDS ---
Physician Documentation [facility] Name: Khai Reyes Age: 46 yrs Sex: Male : 1970 Arrival Date: 12/10/2016 Time: 21:01 Bed I2 / M2 Private MD: NONE Disposition: 12/11/16 01:41 Discharged to Home/Self Care. Impression: Inguinal hernia - BILATERAL, Other abdominal pain. - Condition is Stable. - Discharge Instructions: Abdominal Pain, Adult, Inguinal Hernia, Adult. - Prescriptions for [place] 5- 325 mg Oral Tablet - take 1 tablet by ORAL route every 6 hours As needed MDD: 4 tabs; 10 tablet. - Medication Reconciliation, Local Pharmacy Hours form. - Follow up: Shaheen Lucia MD; When: 1 - 2 days; Reason: Recheck today's complaints, Continuance of care. - Problem is new. - Symptoms have improved. Historical: - Allergies: Codeine Sulfate; PENICILLINS; - Home Meds: 1. Xanax 0.5 mg Oral tab 1 tab 3 times per day (Last dose: 12/10/2016 12:00) 2. losartan oral oral Unknown once daily for Hypertension (Last dose: 12/09/2016) 3. allopurinol 100 mg Oral tab 1 tab nightly for Gout (Last dose: 12/09/2016) - PMHx: Anxiety; Gout; Hypertension; - PSHx: Orthopedic Surgery; Hernia repair; achilles tendon surgery; - Social history: Smoking status: Patient states was never smoker of tobacco. No barriers to communication noted, The patient speaks fluent Turkish, Speaks appropriately for age. - Family history: Not pertinent. - : The pt / caregiver states he / she is not on anticoagulants. Home medication list is obtained from the patient. - Exposure Risk Screening:: None identified. Vital Signs: 12/10 21:03 BP 157 / 95; Pulse 85; Resp 18 S; Temp 97.3(O); Pulse Ox 98% on R/A; Weight 99.79 kg / dd6 220 lbs (R); Height 5 ft. 8 in. (172.72 cm) (R); 12/11 01:51 BP 133 / 89; Pulse 55; Resp 18; Temp 97; Pulse Ox 98% ; jlm 12/10 21:03 Body Mass Index 33.45 (99.79 kg, 172.72 cm) dd6 MDM: 12/10 22:25 ON LICENSE OF [facility] Payment Agreement was scanned into [employer] and attached to record. kf3 22:44 Undress patient appropriately for examination ordered. mo1 22:44 IV Saline Lock ordered. mo1 22:44 NS 0.9% 1000 ml IV at bolus once ordered. mo1 22:45 Basic Metabolic Profile Ordered. EDMS 22:45 CBC with Diff Ordered. EDMS 22:45 Liver Profile Ordered. EDMS 22:45 Urinalysis Ordered. EDMS 22:45 NOTHING BY MOUTH+DIET ordered. EDMS 22:46 ketorolac 30 mg IVP once ordered. mo1 22:46 Financial registration complete. kf3 22:46 Lactic Acid (Flower tube on ice) Ordered. EDMS 22:47 CT ABD & PELVIS: IV Contrast Only Ordered. EDMS 23:46 Lactic Acid (Flower tube on ice) Reviewed. mo1 23:46 Liver Profile Reviewed. mo1 23:47 Urinalysis Reviewed. mo1 23:47 CBC with Diff Reviewed. mo1 23:47 Basic Metabolic Profile Reviewed. mo1 12/11 01:11 CT ABD & PELVIS: IV Contrast Only Reviewed. mo1 01:45 HYDROcodone-acetaminophen 4 pack- 5 mg-325 mg 1 packets PO Per package directions; ck7 Dispense with patient. 1 po q4h prn for pain ordered. 11:56 T-Sheet-- Draft Copy was scanned into [employer] and attached to record. gb 11:57 Radiology Report was scanned into [employer] and attached to record. gb Administered Medications: 12/10 23:10 Drug: NS 0.9% 1000 ml [sodium chloride 0.9 % intravenous solution] Route: IV; Rate: lf1 bolus; Site: right antecubital; 23:12 Drug: ketorolac 30 mg [ketorolac 30 mg/mL (1 mL) injection solution (1 mL)] Route: IVP; lf1 Site: right antecubital; 12/11 02:01 Drug: HYDROcodone-acetaminophen 4 pack- 1 packets [hydrocodone 5 mg-acetaminophen 325 slm mg tablet (1 tabs)] {Co-Signature: lf1 (Katherine Persaud RN).} Route: PO; Signatures: Dispatcher [employer] EDStarr Granados RN RN [facility] Linda Izquierdo, Reg Reg gb Persaud,ANALIA Murphy RN lf1 Teddy Lewis, Reg Reg kf3 Pipe Hernández, RPA-C RPA-Cck7 Thuan Martin PA PA mo1 Gaby Calero,REPAIR DEPARTMENT SUPERVISOR REPAIR DEPARTMENT SUPERVISOR slm Katherine Persaud RN lf1 The chart was reviewed and I authenticate all verbal orders and agree with the evaluation and treatment provided.Attachments: 12/10 22:25 [facility] Payment Agreement kf3 12/11 11:56 T-Sheet-- Draft Copy gb Chart Complete MTDD
== END 2016-12-11 02:01 | disposition home or self-care (01) ==
LOC: M ED 21:01
DX: K40.20 Bilateral inguinal hernia, without obstruction or gangrene, not specified as recurrent (principal); F41.9 Anxiety disorder, unspecified; M10.9 Gout, unspecified; I10 Essential (primary) hypertension; Z79.899 Other long term (current) drug therapy; Z88.8 Allergy status to other drugs, medicaments and biological substances; Z88.0 Allergy status to penicillin

== ENCOUNTER → 2017-02-12 | Day surgery (SDC) | payer OTHER ==
[~2017-02-12] VITALS: Ht 172.7 cm; Wt 99.8 kg
[~2017-02-12] MED LIST changes: +ALLO100T PO; +BUPIVACAINE/EPIN 0.25% 30 ML VIAL As Ordered ONE; +CLINDAMYCIN 600 MG in APPROPRIATE DILUENT 1 EA IV ONE; +GLYCOPYRROLATE INJ 0.2 MG/ML 2 ML VIAL As Ordered ONE; +HYDROmorphone HCL 1 MG/ML SYRINGE (J1170) As Ordered ONE; +LIDOCAINE 2% INJ 100 MG/5 ML SDV (FOR ANES.) As Ordered ONE; +LOSA50TA20 PO; +LR 1,000 ML IV SCH; +MIDAZOLAM INJ 2 MG/2 ML VIAL (J2250) As Ordered ONE; +NEOSTIGMINE 1MG/ML 5 ML SYRINGE (J2710) As Ordered ONE; +NORC5TAB PO; +NORCO, ANEXSIA 5/325MG TABLET (HYDROcodone/ACETAMINOPHEN) PO PRN; +ONDANSETRON 4MG/2ML VIAL (J2405) As Ordered ONE; +ONDANSETRON 4MG/2ML VIAL (J2405) IV PRN; +PROPOFOL 200 MG/20 ML VIAL As Ordered ONE; +ROCURONIUM BROMIDE 50 MG/5 ML VIAL As Ordered ONE; +fentaNYL 100 MCG/2 ML INJECTION (J3010) As Ordered ONE; +fentaNYL 250 MCG/5 ML INJECTION (J3010) As Ordered ONE; +hydrALAZINE INJ 20 MG/ML VIAL As Ordered ONE
[2017-02-12] MEDS: HYDROmorphone HCL 1 MG/ML SYRINGE (J1170) IV PRN ×2 (11:00→12:00)
[2017-02-12] MEDS: fentaNYL 100 MCG/2 ML INJECTION (J3010) IV PRN ×5 (11:35→12:05)
[2017-02-12 15:00] VITALS: BP 131/71
--- NOTE | 2017-02-12 20:49 | RO ---
DATE OF PROCEDURE: 02/12/2017 PREOPERATIVE DIAGNOSIS: Bilateral inguinal hernia repairs and sterilization. POSTOPERATIVE DIAGNOSIS: Bilateral inguinal hernia repairs and sterilization. PROCEDURE: Laparoscopic bilateral inguinal hernia repair with vasectomy. SURGEON: Dr. Usman Petersen HEALTH PROMOTION SPECIALIST: Dr. Johnson ANESTHESIA: General. ESTIMATED BLOOD LOSS: 10 mL. COMPLICATIONS: None. INDICATIONS FOR PROCEDURE: The patient is a 47-year-old male who presents with two bilateral fat-containing inguinal hernias. He also requested sterilization procedure. Risks and benefits of procedure, not limited to but including bleeding, infection, hernia recurrence, damage to surrounding structures, need for further surgery were discussed in detail with the patient. Informed consent was obtained and procedure was planned. DESCRIPTION OF PROCEDURE: The patient was brought back to operating room seven. After sufficient sedation, Garvin catheter was placed and the abdomen was sterilely prepped and draped. Next, a time-out was done to confirm proper patient and proper procedure. Following that, a 2 cm infraumbilical incision was made. Incision was carried down to the level of the fascia. Fascia was opened just to the left of midline. Preperitoneal space was entered and balloon dissector was placed. Next, the preperitoneal balloon was removed and replaced with a 10 mm balloon port. Preperitoneal space was insufflated to 15 mmHg. Two 5 mm ports were placed in the midline in between the pubic symphysis and the umbilical port. Next, using blunt dissection, the hernia sac and a large cord lipoma were dissected free on the right side. Once this was completed, both posteriorly and laterally, the vas deferens was carefully isolated for about a 2 cm stretch. Metal clips were placed on both ends of it. The 2 cm segment was then excised completely and sent for pathology. The same process was done on the left side. Once both sides were completely reduced, another large lipoma was seen on the left as well. Starting on the left side, a Bard 3D Max large mesh was rolled up, placed inside the preperitoneal space, was unrolled laterally, tacked to the midline in the pubic symphysis using a ProTacker. The cord lipoma was then placed on top of the mesh and the mesh was set in place. The same process was done with another Bard 3D Max large mesh on the right side and again, the mesh was laid in place and the cord lipoma was placed on top of it and tacked to the midline. Once both meshes were in place, they were held down as the insufflation was released. The ports were then removed. Fascia at the umbilical port site was closed with interrupted [id number] #0 Vicryl suture. Skin incisions were closed #4-0 Vicryl subcuticular sutures. The abdomen was then cleaned and dried. Steri-Strips, 4 x 4 and tape were applied, thus ending procedure.
== END | disposition home or self-care (01) ==
LOC: M SDC 07:30
PROVIDERS: ATTEND Surgery
DX: K40.20 Bilateral inguinal hernia, without obstruction or gangrene, not specified as recurrent (principal); Z30.2 Encounter for sterilization; M10.9 Gout, unspecified; F41.9 Anxiety disorder, unspecified; I10 Essential (primary) hypertension; Z88.1 Allergy status to other antibiotic agents; Z79.899 Other long term (current) drug therapy
CPT/HCPCS: 49650; 55559; 88302; C1781

== ENCOUNTER 2017-02-14 21:05 | Emergency (ER) | payer OTHER ==
[~2017-02-14] VITALS: Ht 172.7 cm; Wt 99.8 kg
[~2017-02-14 21:05] MED LIST changes: -BUPIVACAINE/EPIN 0.25% 30 ML VIAL As Ordered ONE; -CLINDAMYCIN 600 MG in APPROPRIATE DILUENT 1 EA IV ONE; -GLYCOPYRROLATE INJ 0.2 MG/ML 2 ML VIAL As Ordered ONE; -HYDROmorphone HCL 1 MG/ML SYRINGE (J1170) As Ordered ONE; -LIDOCAINE 2% INJ 100 MG/5 ML SDV (FOR ANES.) As Ordered ONE; -LR 1,000 ML IV SCH; -MIDAZOLAM INJ 2 MG/2 ML VIAL (J2250) As Ordered ONE; -NEOSTIGMINE 1MG/ML 5 ML SYRINGE (J2710) As Ordered ONE; -NORC5TAB PO; -NORCO, ANEXSIA 5/325MG TABLET (HYDROcodone/ACETAMINOPHEN) PO PRN; -ONDANSETRON 4MG/2ML VIAL (J2405) As Ordered ONE; -ONDANSETRON 4MG/2ML VIAL (J2405) IV PRN; -PROPOFOL 200 MG/20 ML VIAL As Ordered ONE; -ROCURONIUM BROMIDE 50 MG/5 ML VIAL As Ordered ONE; -fentaNYL 100 MCG/2 ML INJECTION (J3010) As Ordered ONE; -fentaNYL 250 MCG/5 ML INJECTION (J3010) As Ordered ONE; -hydrALAZINE INJ 20 MG/ML VIAL As Ordered ONE
[2017-02-14] MEDS ORDERED: NORC5TAB PO (21:26)
[2017-02-14 22:27] LABS: BASO % 0.4 % (0.0-1.0); EOS # 0.3 K/mm3 (0.0-0.50); EOS % 2.8 % (0.0-3.0); LARGE UNSTAINED CELL # 0.2 K/mm3 (0.0-0.4); LARGE UNSTAINED CELL % 1.5 % (0.0-4.0); LYMPH # 1.9 K/mm3 (1.5-4.5); LYMPH % 17.4 % (24.0-44.0); MEAN CORPUSCULAR HEMOGLOBIN 30.8 pg (27.0-33.0); MEAN CORPUSCULAR HGB CONC 35.2 g/dl (32.0-36.5); MEAN CORPUSCULAR VOLUME 87.6 fl (80.0-96.0); MONO # 0.7 K/mm3 (0.0-0.8); MONO % 7.1 % (0.0-5.0); NEUTROPHILS % 70.8 % (36.0-66.0); PLATELET COUNT, AUTOMATED 254 k/mm3 (150-450)
[2017-02-14] MEDS ORDERED: ASPIRIN 81 MG CHEW TABLET PO ONE (22:30)
[2017-02-14 22:39] LABS: ALBUMIN 3.7 GM/DL (3.2-5.2); ALBUMIN/GLOBULIN RATIO 0.93 (1.00-1.93); ALKALINE PHOSPHATASE 76 U/L (45-117); ALT/SGPT 39 U/L (12-78); ANION GAP 8 MEQ/L (8-16); AST/SGOT 17 U/L (15-37); BILIRUBIN,DIRECT 0.2 MG/DL (0.0-0.2); BILIRUBIN,TOTAL 0.9 MG/DL (0.2-1.0); BLOOD UREA NITROGEN 16 MG/DL (7-18); CALCIUM LEVEL 9.2 MG/DL (8.5-10.1); CARBON DIOXIDE LEVEL 24 MEQ/L (21-32); CHLORIDE LEVEL 105 MEQ/L (98-107); CREATININE FOR GFR 1.33 MG/DL (0.70-1.30); GLOMERULAR FILTRATION RATE > 60.0 (>60); GLUCOSE, FASTING 124 MG/DL (70-105); POTASSIUM SERUM 3.5 MEQ/L (3.5-5.1); SODIUM LEVEL 137 MEQ/L (136-145); TOTAL PROTEIN 7.7 GM/DL (6.4-8.2)
[2017-02-14] MEDS ORDERED: NS 1,000 ML IV ONE (23:30)
[2017-02-14] MEDS ORDERED: ISOVUE-370 76% 100ML VIAL (Q9967) As Ordered ONE (23:30)
--- NOTE | 2017-02-15 00:40 | REPUSA ---
CLINICAL HISTORY: Dyspnea,exclude PE. TECHNIQUE: Multiple incremental axial, coronal and oblique images are obtained from the thoracic inle t to the upper abdomen. Intravenous contrast material was administered as per pulmonary embolism prot ocol. COMMENTS: There is excellent opacification of pulmonary arterial system without evidence for pulmonary embolism . Aorta is of normal caliber without evidence for dissection or aneurysm. There is no evidence of pleural or parenchymal mass. There are no pleural effusions. There is no evid ence of hilar or mediastinal lymphadenopathy. The heart and great vessels are within normal limits. A telectatic changes of the right lower lobe. Images of the upper abdomen demonstrate no evidence of adrenal mass. The bony structures are free of lytic or blastic lesions. IMPRESSION: No evidence for pulmonary embolism. Atelectatic changes of the right lower lobe. Thank you for your kind referral of this patient.
[2017-02-15 02:55] VITALS: BP 131/67
--- NOTE | 2017-02-15 08:17 | REP ---
Clinical: Chest pain. Technique: PA and lateral. Comparison: 03/01/2016. Findings: There is a small area of predominate linear opacity in the right mid/lower lung zone suggesting focal atelectasis. Remainder lungs are clear and without further consolidation, effusion, or pneumothorax. Mediastinum and cardiac silhouette are normal. Skeletal structures are intact. Impression: Small focal area of atelectasis in the right mid to lower lung zone Signed by Kleber Segura MD 02/15/2017 08:08 A
--- NOTE | 2017-02-15 20:58 | ECGEPIP ---
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
--- NOTE | 2017-02-15 21:00 | ECGEPIP ---
Stationary ECG Study [facility] - ED Test Date: 2017-02-15 Pat Name: MARIE CORONA Department: Room: - Gender: M Lapper: park : 1970 Requested By: NGOZI SHAFER Order Number: [id number] Reading MD: Alisha Lo Measurements Intervals [place] Rate: 67 P: 32 [place]: 176 QRS: -22 QRSD: 97 T: 0 QT: 387 QTc: 410 Interpretive Statements SINUS RHYTHM BORDERLINE LEFT AXIS DEVIATION MODERATE VOLTAGE CRITERIA FOR LVH, CONSIDER NORMAL VARIANT NSTTW ABNORMALITY DECREASED RATE 02/14/17 21:18 Electronically Signed On 02-15-2017 21:00:40 EDT by Alisha Lo
== END 2017-02-15 03:12 | disposition home or self-care (01) ==
LOC: M ED 21:58
DX: R07.9 Chest pain, unspecified (principal); I10 Essential (primary) hypertension; F41.9 Anxiety disorder, unspecified; Z79.899 Other long term (current) drug therapy; Z88.0 Allergy status to penicillin; Z88.5 Allergy status to narcotic agent

== ENCOUNTER → 2017-04-05 | Outpatient (REF) | payer OTHER ==
[~2017-04-05] MED LIST changes: +INDO50CA PO; +NORC1TAB4 PO
[2017-04-05 09:54] LABS: IMMMOTILE SPERM CENTRIFUGED ABSENT (ABSENT); IMMOTILE SPERM ABSENT (ABSENT); MOTILE SPERM ABSENT (ABSENT); MOTILE SPERM CENTRIFUGED ABSENT (ABSENT)
== END ==
LOC: M LAB REF 09:02
PROVIDERS: ATTEND Surgery
DX: Z30.2 Encounter for sterilization (principal)

== ENCOUNTER 2017-04-07 12:40 | Emergency (ER) | payer OTHER ==
[~2017-04-07] VITALS: Ht 172.7 cm; Wt 99.8 kg
[~2017-04-07 12:40] MED LIST changes: -INDO50CA PO
[2017-04-07 12:41] VITALS: BP 116/75
[2017-04-07] MEDS ORDERED: INDOMETHACIN 25 MG CAP PO ONE (13:30)
[2017-04-07] MEDS ORDERED: COLCHICINE 0.6 MG TAB PO ONE ×2 (13:30)
[2017-04-07] MEDS ORDERED: INDO50CA PO (13:55)
== END 2017-04-07 14:04 | disposition home or self-care (01) ==
LOC: M ED 13:29
DX: M10.072 Idiopathic gout, left ankle and foot (principal); F41.9 Anxiety disorder, unspecified; Z87.09 Personal history of other diseases of the respiratory system; Z86.711 Personal history of pulmonary embolism; F12.20 Cannabis dependence, uncomplicated; Z79.899 Other long term (current) drug therapy; Z88.0 Allergy status to penicillin; Z88.5 Allergy status to narcotic agent

== ENCOUNTER 2017-06-19 12:39 | Emergency (ER) | payer OTHER ==
[~2017-06-19] VITALS: Ht 172.7 cm; Wt 100.2 kg
[~2017-06-19 12:39] MED LIST changes: +INDO50CA PO
--- NOTE | 2017-06-19 13:53 | REP ---
Right knee five views : There are no comparisons. There is questionably an avulsion of the lateral tibial spine. There is no other evidence of fracture. Mineralization and joint spaces are normal. There is no hemarthrosis. The skeletal structures and soft tissues are otherwise unremarkable. Impression: Questionable avulsion of the lateral tibial spine. Otherwise, negative right knee. Signed by Usman Vences MD 06/19/2017 01:44 P
[2017-06-19 13:57] VITALS: BP 123/83
--- NOTE | 2017-06-20 08:43 | ED PDOC ---
Post-Departure Follow[place] [facility] [place] Dorys Ortiz MD Jun 20, 2017 08:43
== END 2017-06-19 14:01 | disposition home or self-care (01) ==
LOC: M ED 12:39
DX: S83.411A Sprain of medial collateral ligament of right knee, initial encounter (principal); M17.11 Unilateral primary osteoarthritis, right knee; F41.9 Anxiety disorder, unspecified; M10.9 Gout, unspecified; X58.XXXA Exposure to other specified factors, initial encounter; Y92.9 Unspecified place or not applicable; Y99.9 Unspecified external cause status; Y93.9 Activity, unspecified; Z88.0 Allergy status to penicillin; Z88.5 Allergy status to narcotic agent; Z79.899 Other long term (current) drug therapy

== ENCOUNTER 2017-10-06 11:27 | Emergency (ER) | payer OTHER ==
[~2017-10-06] VITALS: Ht 172.7 cm; Wt 100.0 kg
[2017-10-06] MEDS ORDERED: COLC1TAB13 PO (13:01)
[2017-10-06 13:10] VITALS: BP 139/84
== END 2017-10-06 13:12 | disposition home or self-care (01) ==
LOC: M ED 11:27
DX: M10.9 Gout, unspecified (principal); I10 Essential (primary) hypertension; I25.10 Atherosclerotic heart disease of native coronary artery without angina pectoris

== ENCOUNTER 2017-12-10 11:21 | Emergency (ER) | payer OTHER ==
[2017-12-10 12:01] LABS: BASO # 0.1 10^3/uL (0.0-0.2); BASO % 0.6 % (0.0-1.0); EOS # 0.2 10^3/uL (0.0-0.50); EOS % 2.9 % (0.0-3.0); HEMATOCRIT 47.8 % (42.0-52.0); HEMOGLOBIN 16.7 g/dl (14.0-18.0); IMMATURE GRANULOCYTE # 0.1 10^3/uL (0-0); IMMATURE GRANULOCYTE % 0.9 % (0-0); LYMPH # 1.8 10^3/uL (1.5-4.5); LYMPH % 22.7 % (24.0-44.0); MEAN CORPUSCULAR HEMOGLOBIN 30.4 pg (27.0-33.0); MEAN CORPUSCULAR HGB CONC 34.9 g/dl (32.0-36.5); MEAN CORPUSCULAR VOLUME 87.1 fl (80.0-96.0); MONO # 0.8 10^3/uL (0.0-0.8); NEUTROPHILS # 4.8 10^3/uL (1.8-7.7); NEUTROPHILS % 62.9 % (36.0-66.0); PLATELET COUNT, AUTOMATED 265 10^3/uL (150-450); RED BLOOD COUNT 5.49 10^6/uL (4.30-6.10); RED CELL DISTRIBUTION WIDTH 12.5 % (11.5-14.5); WHITE BLOOD COUNT 7.7 10^3/uL (4.0-10.0)
[2017-12-10 12:14] LABS: INR 0.93; PARTIAL THROMBOPLASTIN TIME 25.8 SECONDS (26.8-37.9); PROTHROMBIN TIME 12.5 SECONDS (12.4-14.5)
[2017-12-10 12:19] LABS: NT-PRO BNP 6 PG/ML (<125)
[2017-12-10 12:21] LABS: ALBUMIN 4.2 GM/DL (3.2-5.2); ALBUMIN/GLOBULIN RATIO 1.27 (1.00-1.93); ALKALINE PHOSPHATASE 81 U/L (45-117); ALT/SGPT 48 U/L (12-78); ANION GAP 9 MEQ/L (8-16); AST/SGOT 19 U/L (7-37); BILIRUBIN,DIRECT 0.1 MG/DL (0.0-0.2); BILIRUBIN,TOTAL 0.7 MG/DL (0.2-1.0); BLOOD UREA NITROGEN 17 MG/DL (7-18); CALCIUM LEVEL 9.1 MG/DL (8.5-10.1); CARBON DIOXIDE LEVEL 22 MEQ/L (21-32); CHLORIDE LEVEL 108 MEQ/L (98-107); CPK CREATINE PHOSPHOKINASE 198 U/L (39-308); GLOMERULAR FILTRATION RATE > 60.0 (>60); GLUCOSE, FASTING 97 MG/DL (70-105); MB/CK RELATIVE INDEX 1.01 (< OR =4); SODIUM LEVEL 139 MEQ/L (136-145); TOTAL PROTEIN 7.5 GM/DL (6.4-8.2); TROPONIN I < 0.02 NG/ML (< 0.10)
[2017-12-10] MEDS: ASPIRIN 81 MG CHEW TABLET PO (12:30)
== END 2017-12-10 13:34 | disposition home or self-care (01) ==
LOC: M ED 11:21
DX: R07.9 Chest pain, unspecified (principal); R06.02 Shortness of breath; R00.2 Palpitations; I45.19 Other right bundle-branch block; I10 Essential (primary) hypertension; F41.9 Anxiety disorder, unspecified; Z82.49 Family history of ischemic heart disease and other diseases of the circulatory system; Z79.899 Other long term (current) drug therapy; F12.20 Cannabis dependence, uncomplicated
CPT/HCPCS: 71045

== ENCOUNTER 2018-01-16 13:31 | Emergency (ER) | payer OTHER ==
[2018-01-16] MEDS: COLCHICINE 0.6 MG TAB PO ×2 (16:00→16:04)
== END 2018-01-16 16:13 | disposition home or self-care (01) ==
LOC: M ED 13:31
DX: M10.071 Idiopathic gout, right ankle and foot (principal); I10 Essential (primary) hypertension; F41.9 Anxiety disorder, unspecified; Z86.711 Personal history of pulmonary embolism; Z79.899 Other long term (current) drug therapy; Z88.5 Allergy status to narcotic agent; Z88.0 Allergy status to penicillin
CPT/HCPCS: 99283

== ENCOUNTER → 2018-05-17 | Outpatient (REF) | payer OTHER | LOC: M SFHCLERA 17:31 | DX: M79.1 Myalgia (principal) ==

== ENCOUNTER 2018-05-19 10:47 | Emergency (ER) | payer OTHER ==
[2018-05-19] MEDS: predniSONE 20 MG TAB PO (11:35)
[2018-05-19] MEDS: IPRATROPIUM 0.5MG/ALBUTEROL 2.5MG INH SOL UD 3ML (DUONEB)(J7620) NEB (11:51)
[2018-05-19] MEDS: DOXYCYCLINE HYCLATE 100 MG TAB PO (12:12)
== END 2018-05-19 12:45 | disposition home or self-care (01) ==
LOC: M ED 10:47
DX: J01.90 Acute sinusitis, unspecified (principal); J20.9 Acute bronchitis, unspecified; I10 Essential (primary) hypertension; Z88.5 Allergy status to narcotic agent; Z88.0 Allergy status to penicillin; Z79.899 Other long term (current) drug therapy; Z98.890 Other specified postprocedural states; Z86.711 Personal history of pulmonary embolism
CPT/HCPCS: 71046

== ENCOUNTER 2018-06-05 22:29 | Emergency (ER) | payer OTHER | END 2018-06-06 02:12 | disposition home or self-care (01) | LOC: M ED 22:29 | DX: S86.912A Strain of unspecified muscle(s) and tendon(s) at lower leg level, left leg, initial encounter (principal); X58.XXXA Exposure to other specified factors, initial encounter; Y92.9 Unspecified place or not applicable; Y93.9 Activity, unspecified; Y99.9 Unspecified external cause status; I10 Essential (primary) hypertension; M10.9 Gout, unspecified; Z79.899 Other long term (current) drug therapy; Z88.5 Allergy status to narcotic agent; Z88.0 Allergy status to penicillin | CPT/HCPCS: 73564 ==

== ENCOUNTER 2018-07-12 17:19 | Emergency (ER) | payer OTHER ==
[2018-07-12] MEDS: COLCHICINE 0.6 MG TAB PO (20:39)
[2018-07-12] MEDS: INDOMETHACIN 25 MG CAP PO (20:45)
== END 2018-07-12 20:47 | disposition home or self-care (01) ==
LOC: M ED 17:19
DX: M10.9 Gout, unspecified (principal); I10 Essential (primary) hypertension; Z86.711 Personal history of pulmonary embolism; F41.9 Anxiety disorder, unspecified; Z88.0 Allergy status to penicillin; Z88.5 Allergy status to narcotic agent; Z79.899 Other long term (current) drug therapy
CPT/HCPCS: 99283

== ENCOUNTER 2018-12-16 13:26 | Emergency (ER) | payer OTHER ==
[~2018-12-16] VITALS: Ht 172.7 cm; Wt 102.7 kg
[~2018-12-16 13:26] MED LIST changes: +ALPR0.5T3; +CLAR1TAB2 PO; +COLC1CAP PO; +COLC1TAB13 PO; +DOXY100C37 PO; +KETO10TAB PO; -LOSA50TA20 PO; +LOSA50TA88 PO; +MUCI600T37 PO; +PROAAER10 INH; +XANA0.5T
[2018-12-16] MEDS ORDERED: ALPR0.5T3 (13:34)
--- NOTE | 2018-12-16 14:21 | REP ---
BILATERAL KNEE SERIES: Five views of the bilateral knees performed. No fracture or dislocation is seen bilaterally. There is mild medial joint space narrowing and subchondral sclerosis on both sides as well as minor lateral patellofemoral compartment narrowing with subchondral sclerosis and mild spurring of the lateral patellar facets. I do not see a significant joint effusion bilaterally. IMPRESSION: Mild degenerative changes bilaterally without evidence of fracture or dislocation. Electronically Signed by Usman Flower MD 12/16/2018 03:09 P
[2018-12-16] MEDS ORDERED: NORCOTAB PO (14:39)
[2018-12-16 14:44] VITALS: BP 135/85
== END 2018-12-16 14:51 | disposition home or self-care (01) ==
LOC: M ED 13:26
DX: M17.0 Bilateral primary osteoarthritis of knee (principal); I10 Essential (primary) hypertension; F41.9 Anxiety disorder, unspecified; Z86.711 Personal history of pulmonary embolism

== ENCOUNTER 2019-06-07 11:06 | Emergency (ER) | payer OTHER ==
[~2019-06-07] VITALS: Ht 172.7 cm; Wt 100.0 kg
[~2019-06-07 11:06] MED LIST changes: +HYDR-3715 PO; -INDO50CA PO; +INDO50CA11 PO; -NORC1TAB4 PO; +NORC1TAB7 PO
[2019-06-07] MEDS ORDERED: ASPIRIN 81 MG CHEW TABLET PO ONE (11:30)
[2019-06-07 11:34] LABS: BASO % 0.6 % (0.0-1.0); EOS # 0.2 10^3/uL (0.0-0.50); EOS % 3.1 % (0.0-3.0); HEMATOCRIT 43.8 % (42.0-52.0); LYMPH # 1.6 10^3/uL (1.5-4.5); LYMPH % 24.7 % (24.0-44.0); MEAN CORPUSCULAR HEMOGLOBIN 31.1 pg (27.0-33.0); MEAN CORPUSCULAR HGB CONC 34.2 g/dl (32.0-36.5); MEAN CORPUSCULAR VOLUME 90.9 fl (80.0-96.0); MONO # 0.6 10^3/uL (0.0-0.8); NEUTROPHILS # 3.9 10^3/uL (1.8-7.7); PLATELET COUNT, AUTOMATED 221 10^3/uL (150-450); RED BLOOD COUNT 4.82 10^6/uL (4.30-6.10); WHITE BLOOD COUNT 6.4 10^3/uL (4.0-10.0)
[2019-06-07] MEDS: NITROGLYCERIN 0.4 MG SUBL TABLET SL PRN ×3 (11:38→12:22)
[2019-06-07 11:44] LABS: INR 1.02; PROTHROMBIN TIME 13.1 SECONDS (11.8-14.0)
[2019-06-07 11:45] LABS: PARTIAL THROMBOPLASTIN TIME 25.3 SECONDS (25.0-38.4)
--- NOTE | 2019-06-07 11:46 | REP ---
Chest x-ray: Two views. History: Chest pain . Comparison study: May 16, 2018 . Findings: The lungs are well inflated and free of infiltrate. The pleural angles are sharp. The heart size is normal. Pulmonary vasculature is not increased. No significant bony abnormality is seen. EKG monitoring electrodes are seen. There is an old healed fracture of the left clavicle. Impression: Negative chest x-ray. Electronically Signed by Henok Becerra MD 06/07/2019 11:38 A
[2019-06-07 11:47] LABS: D-DIMER QUANT 515.44 ng/ml (<500)
[2019-06-07 12:15] LABS: ALBUMIN 3.7 GM/DL (3.2-5.2); ALT/SGPT 58 U/L (12-78); BILIRUBIN,DIRECT 0.2 MG/DL (0.0-0.2); BILIRUBIN,TOTAL 0.7 MG/DL (0.2-1.0); BLOOD UREA NITROGEN 13 MG/DL (7-18); CALCIUM LEVEL 8.6 MG/DL (8.5-10.1); CARBON DIOXIDE LEVEL 26 MEQ/L (21-32); CHLORIDE LEVEL 108 MEQ/L (98-107); CPK CREATINE PHOSPHOKINASE 324 U/L (39-308); CREATININE FOR GFR 1.13 MG/DL (0.70-1.30); FREE T4 0.98 NG/DL (0.76-1.46); GLOMERULAR FILTRATION RATE > 60.0 (>60); GLUCOSE, FASTING 149 MG/DL (70-100); LIPASE 230 U/L (73-393); MB/CK RELATIVE INDEX 0.62 (< OR =4); POTASSIUM SERUM 4.2 MEQ/L (3.5-5.1); SODIUM LEVEL 138 MEQ/L (136-145); TOTAL PROTEIN 6.6 GM/DL (6.4-8.2); TROPONIN I < 0.02 NG/ML (< 0.10)
[2019-06-07 12:22] VITALS: BP 110/60
[2019-06-07] MEDS ORDERED: ISOVUE-370 76% 100ML VIAL (Q9967) As Ordered ONE (12:58)
--- NOTE | 2019-06-07 13:27 | REP ---
CT pulmonary angiogram: With IV contrast. History: Chest pain. Elevated D-dimer. Comparison studies: Comparison CT pulmonary angiogram February 14, 2017. Contrast dose: 75 ML of Isovue [address] technique: Helical scanning is acquired and overlapping 1.5 mm and contiguous 3 mm axial images are reformatted. In addition, maximum intensity projection and multiplanar re-formation images are generated in sagittal and coronal imaging projections. CT pulmonary angiographic findings: There is good opacification of the pulmonary arterial tree. There is no CT evidence of pulmonary embolism. Thoracic aorta enhances homogeneously and it is normal in caliber. There is no evidence of pleural or pericardial effusion. No hilar or mediastinal mass or adenopathy is observed. Maximal intensity projection images show no filling defect or vessel cutoff sign. No pulmonary nodule, mass, or infiltrate is seen. No adrenal lesion is observed. The visualized upper abdominal structures are remarkable only for some mild fatty infiltration of the liver. No bony destructive lesion is appreciated. Impression: No CT evidence of pulmonary embolus. Mild fatty infiltration of the liver. Otherwise negative CT pulmonary angiogram. Electronically Signed by Henok Becerra MD 06/07/2019 01:18 P
--- NOTE | 2019-06-07 13:46 | REP ---
Duplex extremity venous ultrasound: Bilateral lower extremities. History: Chest pain. Rule out DVT. Findings: The deep veins are anechoic and fully compressible from the groin to the popliteal fossa in the left and right lower extremity. Color flow imaging is homogeneous. Spectral Doppler interrogation demonstrates intact respiratory variation in flow and normal manual augmentation of flow. There is no evidence of deep vein thrombosis. Impression: Negative bilateral lower extremity duplex venous ultrasound. No evidence of deep vein thrombosis. Electronically Signed by Henok Becerra MD 06/07/2019 01:38 P
[2019-06-07 17:32] LABS: CK-MB VALUE MASS 1.5 NG/ML (<3.6); CPK CREATINE PHOSPHOKINASE 260 U/L (39-308); MB/CK RELATIVE INDEX 0.58 (< OR =4); TROPONIN I < 0.02 NG/ML (< 0.10)
[2019-06-07 17:55] VITALS: BP 135/81
--- NOTE | 2019-06-09 16:37 | ECGEPIP ---
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
--- NOTE | 2019-06-09 16:47 | ECGEPIP ---
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
== END 2019-06-07 18:04 | disposition home or self-care (01) ==
LOC: M ED 11:06
DX: R07.9 Chest pain, unspecified (principal); R00.1 Bradycardia, unspecified; I45.19 Other right bundle-branch block; I10 Essential (primary) hypertension; F41.9 Anxiety disorder, unspecified; M10.9 Gout, unspecified; F12.10 Cannabis abuse, uncomplicated; Z82.49 Family history of ischemic heart disease and other diseases of the circulatory system; Z79.899 Other long term (current) drug therapy; Z88.0 Allergy status to penicillin; Z88.5 Allergy status to narcotic agent
CPT/HCPCS: 36415; 71046; 71275; 80048; 80076; 82550; 82553; 83690; 84439; 84443; 85025; 85379; 85610; 85730; 93005; 93041; 93970; 94760; 99285; Q9967

== ENCOUNTER → 2019-06-12 | Outpatient (REF) | payer OTHER ==
[2019-06-12 17:38] LABS: BASO # 0.1 10^3/uL (0.0-0.2); BASO % 0.7 % (0.0-1.0); EOS # 0.2 10^3/uL (0.0-0.50); EOS % 2.4 % (0.0-3.0); HEMATOCRIT 47.3 % (42.0-52.0); HEMOGLOBIN 16.2 g/dl (13.5-17.5); LYMPH # 2.1 10^3/uL (1.5-4.5); LYMPH % 27.7 % (24.0-44.0); MEAN CORPUSCULAR HEMOGLOBIN 31.3 pg (27.0-33.0); MEAN CORPUSCULAR HGB CONC 34.2 g/dl (32.0-36.5); MEAN CORPUSCULAR VOLUME 91.3 fl (80.0-96.0); MONO # 0.8 10^3/uL (0.0-0.8); MONO % 10.4 % (0.0-5.0); NEUTROPHILS # 4.4 10^3/uL (1.8-7.7); NEUTROPHILS % 58.3 % (36.0-66.0); PLATELET COUNT, AUTOMATED 263 10^3/uL (150-450); RED BLOOD COUNT 5.18 10^6/uL (4.30-6.10); WHITE BLOOD COUNT 7.6 10^3/uL (4.0-10.0)
[2019-06-12 17:42] LABS: C REACTIVE PROTEIN QUANTITATIV < 0.30 MG/DL (0.00-0.30); URIC ACID 5.4 MG/DL (3.5-7.2)
[2019-06-12 19:40] LABS: ERYTHROCYTE SEDIMENTATION RATE 5 mm/hr (0-15)
[2019-06-15 00:06] LABS: ANTINUCLEAR ANTIBODIES DIRECT Negative (Negative); Lyme Disease IgG/IgM Antibodie <0.91 ISR (0.00-0.90); Lyme Disease IgM Ab Quantitati <0.80 index (0.00-0.79)
== END ==
LOC: M LABDRAW1 14:28
PROVIDERS: ATTEND Physician Assistant Surgical
DX: Z47.89 Encounter for other orthopedic aftercare (principal)

== ENCOUNTER 2019-06-25 23:54 | Emergency (ER) | payer OTHER ==
[~2019-06-25] VITALS: Ht 172.7 cm; Wt 99.1 kg
[~2019-06-25 23:54] MED LIST changes: -INDO50CA11 PO; +INDO50CA91 PO
[2019-06-26 00:22] LABS: BASO # 0.1 10^3/uL (0.0-0.2); BASO % 0.7 % (0.0-1.0); EOS # 0.3 10^3/uL (0.0-0.50); EOS % 3.1 % (0.0-3.0); HEMATOCRIT 42.3 % (42.0-52.0); HEMOGLOBIN 14.7 g/dl (13.5-17.5); LYMPH # 2.7 10^3/uL (1.5-4.5); LYMPH % 30.2 % (24.0-44.0); MEAN CORPUSCULAR HEMOGLOBIN 31.2 pg (27.0-33.0); MEAN CORPUSCULAR HGB CONC 34.8 g/dl (32.0-36.5); MEAN CORPUSCULAR VOLUME 89.8 fl (80.0-96.0); MONO % 11.7 % (0.0-5.0); NEUTROPHILS # 4.8 10^3/uL (1.8-7.7); NEUTROPHILS % 53.6 % (36.0-66.0); PLATELET COUNT, AUTOMATED 224 10^3/uL (150-450); RED BLOOD COUNT 4.71 10^6/uL (4.30-6.10); WHITE BLOOD COUNT 8.9 10^3/uL (4.0-10.0)
[2019-06-26 00:28] LABS: INR 1.03; PROTHROMBIN TIME 13.2 SECONDS (11.8-14.0)
[2019-06-26 00:42] LABS: ALBUMIN 3.8 GM/DL (3.2-5.2); ALT/SGPT 63 U/L (12-78); BILIRUBIN,TOTAL 0.5 MG/DL (0.2-1.0); BLOOD UREA NITROGEN 21 MG/DL (7-18); CALCIUM LEVEL 9.3 MG/DL (8.5-10.1); CARBON DIOXIDE LEVEL 26 MEQ/L (21-32); CHLORIDE LEVEL 106 MEQ/L (98-107); CK-MB VALUE MASS 2.2 NG/ML (<3.6); CPK CREATINE PHOSPHOKINASE 297 U/L (39-308); CREATININE FOR GFR 1.11 MG/DL (0.70-1.30); GLOMERULAR FILTRATION RATE > 60.0 (>60); GLUCOSE, FASTING 149 MG/DL (70-100); LIPASE 166 U/L (73-393); MB/CK RELATIVE INDEX 0.74 (< OR =4); POTASSIUM SERUM 3.8 MEQ/L (3.5-5.1); SODIUM LEVEL 140 MEQ/L (136-145); TOTAL PROTEIN 6.7 GM/DL (6.4-8.2); TROPONIN I < 0.02 NG/ML (< 0.10)
[2019-06-26] MEDS ORDERED: ISOVUE-370 76% 100ML VIAL (Q9967) As Ordered ONE (01:59)
[2019-06-26] MEDS ORDERED: ASPIRIN 325 MG TAB PO ONE (02:00)
--- NOTE | 2019-06-26 03:10 | REPVR ---
EXAM: CT Angiography Chest With Contrast EXAM DATE/TIME: 06/26/2019 1:49 AM CLINICAL HISTORY: 49 years old, male; Chest pain; Type not specified; Additional info: Cp TECHNIQUE: Imaging protocol: Axial computed tomographic angiography images of the chest with intravenous contrast using CT angiography protocol. Coronal and sagittal reformatted images were created and reviewed. 3D rendering: MIP reconstructed images were created and reviewed. Radiation optimization: All CT scans at this facility use at least one of these dose optimization techniques: automated exposure control; mA and/or kV adjustment per patient size (includes targeted exams where dose is matched to clinical indication); or iterative reconstruction. Contrast material: ISO;Contrast volume: 75 ml;Contrast route: AC; COMPARISON: CT ANGIO CHEST 06/07/2019 12:59 PM FINDINGS: Pulmonary arteries: Normal. No pulmonary emboli. Aorta: Unremarkable. No aortic aneurysm. No aortic dissection. Lungs: Mild bibasilar atelectasis. Pleural space: Unremarkable. No pneumothorax. No pleural effusion. Heart: Unremarkable. No cardiomegaly. No pericardial effusion. Lymph nodes: Unremarkable. No enlarged lymph nodes. Bones/joints: Unremarkable. No acute fracture. Soft tissues: Unremarkable. IMPRESSION: No pulmonary embolism. No acute finding. Electronically signed by: Haley Kothari On 06/26/2019 03:09:33 AM
[2019-06-26 05:25] LABS: CK-MB VALUE MASS 1.9 NG/ML (<3.6); CPK CREATINE PHOSPHOKINASE 256 U/L (39-308); MB/CK RELATIVE INDEX 0.74 (< OR =4); TROPONIN I < 0.02 NG/ML (< 0.10)
[2019-06-26] MEDS ORDERED: METAL LOCK LOOP XX ONE (05:28)
[2019-06-26 05:30] VITALS: BP 125/74
--- NOTE | 2019-06-26 08:01 | REP ---
Portable chest, 12th 12 a.m., single AP view with the patient upright: Comparison is 06/07/2019. The lung lackey are clear. The cardiac size is normal. The mily, mediastinum, and skeletal structures are unremarkable. Impression: Negative portable chest. There is no interval change. Electronically Signed by Usman Vences MD 06/26/2019 07:53 A
--- NOTE | 2019-06-27 21:40 | ECGEPIP ---
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
--- NOTE | 2019-06-27 21:46 | ECGEPIP ---
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
== END 2019-06-26 05:44 | disposition home or self-care (01) ==
LOC: M ED 23:54
DX: G89.29 Other chronic pain (principal); R07.89 Other chest pain; I10 Essential (primary) hypertension; F41.9 Anxiety disorder, unspecified; Z72.0 Tobacco use; Z79.899 Other long term (current) drug therapy; Z88.0 Allergy status to penicillin; Z88.5 Allergy status to narcotic agent
CPT/HCPCS: 71045; 71275; 80053; 82550; 82553; 83690; 85025; 85610; 93005; 93041; 99285; Q9967

== ENCOUNTER → 2019-12-24 | Outpatient (CLI) | payer OTHER ==
[2019-12-24 13:26] LABS: ALT/SGPT 55 U/L (12-78); BILIRUBIN,TOTAL 0.8 MG/DL (0.2-1.0); BLOOD UREA NITROGEN 13 MG/DL (7-18); CALCIUM LEVEL 8.7 MG/DL (8.5-10.1); CARBON DIOXIDE LEVEL 25 MEQ/L (21-32); CHLORIDE LEVEL 110 MEQ/L (98-107); CHOLESTEROL LEVEL 232 MG/DL (<200); CHOLESTEROL RISK RATIO 4.936 (<5); CREATININE FOR GFR 0.99 MG/DL (0.70-1.30); FREE T4 1.06 NG/DL (0.76-1.46); GLOMERULAR FILTRATION RATE > 60.0 (>60); GLUCOSE, FASTING 113 MG/DL (70-100); HDL CHOLESTEROL 47 MG/DL (>40); LDL CHOLESTEROL 154 MG/DL (<100); NON-HDL-C 185 MG/DL; POTASSIUM SERUM 4.2 MEQ/L (3.5-5.1); SODIUM LEVEL 141 MEQ/L (136-145); TRIGLYCERIDES LEVEL 154 MG/DL (<150); URIC ACID 6.3 MG/DL (3.5-7.2)
[2019-12-24 13:30] LABS: TOTAL 25(OH) VITAMIN D 16.9 NG/ML (30.0-100.0)
== END ==
LOC: M PLALAB 11:21
PROVIDERS: ATTEND Nurse Practitioner Family
DX: I10 Essential (primary) hypertension (principal); E66.9 Obesity, unspecified; Z87.39 Personal history of other diseases of the musculoskeletal system and connective tissue

== ENCOUNTER → 2020-04-14 | Outpatient (REF) | payer MEDICAID, OTHER ==
[2020-04-14 10:42] LABS: ALBUMIN 4.1 GM/DL (3.2-5.2); ALT/SGPT 105 U/L (12-78); BILIRUBIN,TOTAL 0.9 MG/DL (0.2-1.0); BLOOD UREA NITROGEN 15 MG/DL (7-18); CALCIUM LEVEL 9.4 MG/DL (8.5-10.1); CARBON DIOXIDE LEVEL 27 MEQ/L (21-32); CHLORIDE LEVEL 106 MEQ/L (98-107); CREATININE FOR GFR 1.04 MG/DL (0.70-1.30); GLOMERULAR FILTRATION RATE > 60.0 (>60); GLUCOSE, FASTING 122 MG/DL (70-100); POTASSIUM SERUM 4.4 MEQ/L (3.5-5.1); SODIUM LEVEL 140 MEQ/L (136-145); TOTAL PROTEIN 7.6 GM/DL (6.4-8.2)
[2020-04-14 10:51] LABS: TOTAL 25(OH) VITAMIN D 17.6 NG/ML (30.0-100.0)
[2020-04-14 11:13] LABS: MALB URINE SIEMENS 52.4 MG/L; MAU/CREAT RATIO 32.5 MCG/MG (0.0-30.0)
[2020-04-14 11:43] LABS: HEMOGLOBIN A1c 6.2 %
== END ==
LOC: M SFHCPLAZ 08:45
PROVIDERS: ATTEND Nurse Practitioner Family
DX: R73.01 Impaired fasting glucose (principal); I11.9 Hypertensive heart disease without heart failure; E55.9 Vitamin D deficiency, unspecified

== ENCOUNTER → 2020-07-19 | Outpatient (CLI) | payer MEDICAID ==
[2020-07-19 16:43] LABS: HEMATOCRIT 48.3 % (42.0-52.0); MEAN CORPUSCULAR HEMOGLOBIN 30.9 pg (27.0-33.0); MEAN CORPUSCULAR HGB CONC 33.1 g/dl (32.0-36.5); MEAN CORPUSCULAR VOLUME 93.4 fl (80.0-96.0); PLATELET COUNT, AUTOMATED 225 10^3/uL (150-450); RED BLOOD COUNT 5.17 10^6/uL (4.30-6.10); WHITE BLOOD COUNT 7.3 10^3/uL (4.0-10.0)
[2020-07-19 17:00] LABS: HEMOGLOBIN A1c 5.7 %
[2020-07-19 17:06] LABS: ALBUMIN 3.9 GM/DL (3.2-5.2); ALT/SGPT 90 U/L (12-78); BILIRUBIN,TOTAL 0.7 MG/DL (0.2-1.0); BLOOD UREA NITROGEN 11 MG/DL (7-18); CALCIUM LEVEL 9.2 MG/DL (8.5-10.1); CARBON DIOXIDE LEVEL 28 MEQ/L (21-32); CHLORIDE LEVEL 106 MEQ/L (98-107); CHOLESTEROL LEVEL 238 MG/DL (<200); CHOLESTEROL RISK RATIO 4.576 (<5); CREATININE FOR GFR 1.03 MG/DL (0.70-1.30); GLOMERULAR FILTRATION RATE > 60.0 (>60); GLUCOSE, FASTING 103 MG/DL (70-100); HDL CHOLESTEROL 52 MG/DL (>40); LDL CHOLESTEROL 141 MG/DL (<100); NON-HDL-C 186 MG/DL; POTASSIUM SERUM 4.7 MEQ/L (3.5-5.1); SODIUM LEVEL 138 MEQ/L (136-145); TESTOSTERONE 326 NG/DL (241-827); TOTAL 25(OH) VITAMIN D 23.8 NG/ML (30.0-100.0); TOTAL PROTEIN 7.2 GM/DL (6.4-8.2); TRIGLYCERIDES LEVEL 224 MG/DL (<150)
== END ==
LOC: M PLALAB 11:25
PROVIDERS: ATTEND Family Medicine
DX: I10 Essential (primary) hypertension (principal); R53.83 Other fatigue; N40.0 Benign prostatic hyperplasia without lower urinary tract symptoms

== ENCOUNTER → 2020-10-16 | Outpatient (CLI) | payer SELFPAY | LOC: M LABSMTC 11:00 | PROVIDERS: ATTEND Pediatrics | DX: Z20.828 Contact with and (suspected) exposure to other viral communicable diseases (principal) ==

== ENCOUNTER 2021-05-11 10:35 | Emergency (ER) | payer MEDICAID, SELFPAY ==
[~2021-05-11] VITALS: Ht 172.7 cm; Wt 109.1 kg
[~2021-05-11 10:35] MED LIST changes: +COLC0.6T47 PO; -COLC1TAB13 PO; -DOXY100C37 PO; +DOXY1CAP62 PO
[2021-05-11] MEDS ORDERED: NITROGLYCERIN 0.4 MG SUBL TABLET SL PRN (11:20)
[2021-05-11] MEDS ORDERED: ASPIRIN 81 MG CHEW TABLET PO ONE (11:20)
[2021-05-11 11:21] LABS: BASO # 0.1 10^3/uL (0.0-0.2); BASO % 0.8 % (0.0-1.0); EOS # 0.2 10^3/uL (0.0-0.5); EOS % 2.7 % (0.0-3.0); HEMATOCRIT 50.7 % (42.0-52.0); LYMPH # 1.6 10^3/uL (1.5-5.0); LYMPH % 25.6 % (24.0-44.0); MEAN CORPUSCULAR HEMOGLOBIN 30.9 pg (27.0-33.0); MEAN CORPUSCULAR HGB CONC 33.5 g/dl (32.0-36.5); MONO # 0.7 10^3/uL (0.0-0.8); MONO % 10.2 % (2.0-8.0); NEUTROPHILS # 3.8 10^3/uL (1.5-8.5); NEUTROPHILS % 59.6 % (36.0-66.0); PLATELET COUNT, AUTOMATED 201 10^3/uL (150-450); RED BLOOD COUNT 5.51 10^6/uL (4.30-6.10); WHITE BLOOD COUNT 6.4 10^3/uL (4.0-10.0)
--- NOTE | 2021-05-11 11:33 | REP ---
INDICATION: CHEST PAIN COMPARISON: 06/18/2020 TECHNIQUE: Portable AP view of the chest FINDINGS: The mediastinum and cardiac silhouette are stable and within normal limits for portable technique. The lung lackey are clear without acute consolidation, effusion, or pneumothorax. Skeletal structures are intact. IMPRESSION: No acute cardiopulmonary process appreciated. <Electronically signed by Kleber Segura > 05/11/21 1121
[2021-05-11 11:55] LABS: ALBUMIN 3.9 GM/DL (3.2-5.2); ALT/SGPT 112 U/L (12-78); BILIRUBIN,DIRECT 0.1 MG/DL (0.0-0.2); BILIRUBIN,TOTAL 0.7 MG/DL (0.2-1.0); BLOOD UREA NITROGEN 10 MG/DL (7-18); CALCIUM LEVEL 8.9 MG/DL (8.5-10.1); CARBON DIOXIDE LEVEL 25 MEQ/L (21-32); CHLORIDE LEVEL 110 MEQ/L (98-107); CREATININE FOR GFR 0.92 MG/DL (0.70-1.30); GLOMERULAR FILTRATION RATE > 60.0 (>60); GLUCOSE, FASTING 112 MG/DL (70-100); LIPASE 115 U/L (73-393); NT-PRO BNP 53 PG/ML (<125); POTASSIUM SERUM 4.4 MEQ/L (3.5-5.1); SODIUM LEVEL 140 MEQ/L (136-145); TOTAL PROTEIN 7.1 GM/DL (6.4-8.2)
[2021-05-11] MEDS ORDERED: ISOVUE-370 76% 100ML VIAL As Ordered ONE (12:21)
[2021-05-11] MEDS ORDERED: ALPRAZolam 0.25 MG TAB PO ONE (16:00)
--- NOTE | 2021-05-11 16:05 | REP ---
INDICATION: CP r/o PE. COMPARISON: 06/18/2020. TECHNIQUE: CT angiogram chest performed following the intravenous administration of 100 cc of Isovue 370. Sagittal and coronal reconstruction images are performed. FINDINGS: Lungs: There are mild scattered fibro atelectatic changes. Mediastinum: No adenopathy. Pulmonary arteries: No evidence of pulmonary embolism. Kristin: No adenopathy. Axilla: No adenopathy. Pleura: No effusion. Heart: Not enlarged. Thoracic aorta: No aneurysm or dissection. Upper abdominal structures: There is diffuse fatty infiltration of the liver. Visualized osseous structures: Unremarkable. IMPRESSION: No CT evidence of pulmonary embolism. No infiltrate seen. <Electronically signed by Usman Flower > 05/11/21 2233
[2021-05-11 17:23] VITALS: BP 162/96
== END 2021-05-11 17:28 | disposition home or self-care (01) ==
LOC: M ED 10:35
DX: R07.9 Chest pain, unspecified (principal); I10 Essential (primary) hypertension; Z79.899 Other long term (current) drug therapy; Z88.0 Allergy status to penicillin; Z88.5 Allergy status to narcotic agent
CPT/HCPCS: 71045; 71275; 80048; 80076; 83690; 83880; 84443; 85025; 93041; 94760; 99284; Q9967

== ENCOUNTER → 2021-11-23 | Outpatient (CLI) | payer MEDICAID ==
[~2021-11-23] MED LIST changes: +DOXY-443 PO; -DOXY1CAP62 PO
== END ==
LOC: M LABSMTC 13:49
PROVIDERS: ATTEND Pediatrics
DX: Z20.828 Contact with and (suspected) exposure to other viral communicable diseases (principal)

== ENCOUNTER 2021-11-30 08:44 | Outpatient (CLI) | payer MEDICAID ==
[~2021-11-30] VITALS: Ht 172.7 cm; Wt 104.9 kg
[~2021-11-30 08:44] MED LIST changes: +ALBUTEROL 90 MCG/ACT 8GM HFA INHALER INH PRN; +ALBUTEROL SULFATE 2.5 MG/0.5 ML INH NEB SOLN INH PRN; +EPINEPHrine INJ 1 MG/ML 1ML AMP IM PRN; +NS 1,000 ML IV SCH; +diphenhydrAMINE 50MG/ML VIAL (J1200) IV PRN; +methylPREDNISolone 125MG 2ML VIAL IV PRN
[2021-11-30] MEDS ORDERED: CASIRIVIMAB/IMDEVIMAB 1,200 MG in NS 250 ML IV ONE (09:00)
[2021-11-30 09:16] VITALS: BP 146/72
[2021-11-30 09:46] VITALS: BP 127/87
[2021-11-30 10:16] VITALS: BP 138/83
[2021-11-30 11:16] VITALS: BP 138/89
== END 2021-11-30 11:16 | disposition home or self-care (01) ==
LOC: M OPCLI4PR 08:44
PROVIDERS: ATTEND Family Medicine
DX: U07.1 COVID-19 (principal); Z88.0 Allergy status to penicillin; Z88.5 Allergy status to narcotic agent

== ENCOUNTER → 2022-06-05 | Outpatient (CLI) | payer OTHER ==
[~2022-06-05] MED LIST changes: -ALBUTEROL 90 MCG/ACT 8GM HFA INHALER INH PRN; -ALBUTEROL SULFATE 2.5 MG/0.5 ML INH NEB SOLN INH PRN; -EPINEPHrine INJ 1 MG/ML 1ML AMP IM PRN; +LOSA50TA28 PO; -LOSA50TA88 PO; -NS 1,000 ML IV SCH; -diphenhydrAMINE 50MG/ML VIAL (J1200) IV PRN; -methylPREDNISolone 125MG 2ML VIAL IV PRN
[2022-06-05 10:22] LABS: HEMATOCRIT 48.6 % (42.0-52.0); HEMOGLOBIN 16.4 g/dl (13.5-17.5); MEAN CORPUSCULAR HEMOGLOBIN 31.6 pg (27.0-33.0); MEAN CORPUSCULAR HGB CONC 33.7 g/dl (32.0-36.5); MEAN CORPUSCULAR VOLUME 93.6 fl (80.0-96.0); PLATELET COUNT, AUTOMATED 211 10^3/uL (150-450); RED BLOOD COUNT 5.19 10^6/uL (4.30-6.10); WHITE BLOOD COUNT 6.6 10^3/uL (4.0-10.0)
[2022-06-05 15:49] LABS: ALBUMIN 3.7 GM/DL (3.2-5.2); ALT/SGPT 88 U/L (12-78); BILIRUBIN,TOTAL 0.7 MG/DL (0.2-1.0); BLOOD UREA NITROGEN 13 MG/DL (7-18); CALCIUM LEVEL 8.7 MG/DL (8.5-10.1); CARBON DIOXIDE LEVEL 23 MEQ/L (21-32); CHLORIDE LEVEL 109 MEQ/L (98-107); CHOLESTEROL LEVEL 199 MG/DL (<200); CHOLESTEROL RISK RATIO 4.061 (<5); CREATININE FOR GFR 1.02 MG/DL (0.70-1.30); GLOMERULAR FILTRATION RATE > 60.0 (>56); GLUCOSE, FASTING 131 MG/DL (70-100); HDL CHOLESTEROL 49 MG/DL (>40); LDL CHOLESTEROL 118 MG/DL (<100); NON-HDL-C 150 MG/DL; POTASSIUM SERUM 4.6 MEQ/L (3.5-5.1); SODIUM LEVEL 137 MEQ/L (136-145); TESTOSTERONE 372 NG/DL (241-827); TRIGLYCERIDES LEVEL 158 MG/DL (<150)
== END ==
LOC: M LAB 09:58
PROVIDERS: ATTEND Family Medicine
DX: I10 Essential (primary) hypertension (principal); E11.9 Type 2 diabetes mellitus without complications; R53.83 Other fatigue; E03.9 Hypothyroidism, unspecified

== ENCOUNTER → 2023-04-14 | Outpatient (CLI) | payer OTHER ==
[2023-04-14 09:08] LABS: HEMATOCRIT 49.4 % (42.0-52.0); HEMOGLOBIN 16.4 g/dl (13.5-17.5); MEAN CORPUSCULAR HEMOGLOBIN 30.7 pg (27.0-33.0); MEAN CORPUSCULAR HGB CONC 33.2 g/dl (32.0-36.5); MEAN CORPUSCULAR VOLUME 92.3 fl (80.0-96.0); PLATELET COUNT, AUTOMATED 243 10^3/uL (150-450); RED BLOOD COUNT 5.35 10^6/uL (4.30-6.10)
[2023-04-14 09:30] LABS: ALBUMIN 3.9 G/DL (3.2-5.2); ALKALINE PHOSPHATASE 96 U/L (46-116); ALT/SGPT 101 U/L (7.0-40); AST/SGOT 53 U/L (<34); BLOOD UREA NITROGEN 12 MG/DL (9-23); CALCIUM LEVEL 9.8 MG/DL (8.5-10.1); CARBON DIOXIDE LEVEL 28 MMOL/L (20-31); CHLORIDE LEVEL 104 MMOL/L (98-107); CHOLESTEROL LEVEL 237 MG/DL (<200); CHOLESTEROL RISK RATIO 4.84 (<5); CREATININE FOR GFR 1.09 MG/DL (0.70-1.30); GLOMERULAR FILTRATION RATE > 60.0 (>56); GLUCOSE, FASTING 161 MG/DL (60-100); HDL CHOLESTEROL 48.9 MG/DL (>40); LDL CHOLESTEROL 153.1 MG/DL (<100); NON-HDL-C 188.1 MG/DL; POTASSIUM SERUM 4.2 MMOL/L (3.5-5.1); PROSTATIC SPECIFIC AG MONITOR 0.63 NG/ML (< 4.00); SODIUM LEVEL 137 MMOL/L (136-145); TOTAL PROTEIN 6.8 G/DL (5.7-8.2); TRIGLYCERIDES LEVEL 175 MG/DL (<150)
[2023-04-14 09:33] LABS: TESTOSTERONE 333 NG/DL (241-827)
[2023-04-14 09:36] LABS: HEMOGLOBIN A1c 7.7 % (4.0-6.0)
== END ==
LOC: M LAB 08:24
PROVIDERS: ATTEND Family Medicine
DX: I10 Essential (primary) hypertension (principal); E29.1 Testicular hypofunction

== ENCOUNTER 2023-04-17 21:42 | Emergency (ER) | payer OTHER ==
[~2023-04-17] VITALS: Ht 172.7 cm; Wt 114.0 kg
[2023-04-17] MEDS ORDERED: ASPIRIN 81MG CHEW TABLET PO ONE (22:30)
[2023-04-17] MEDS ORDERED: NITROGLYCERIN 0.4MG SUBL TABLET SL PRN (22:30)
[2023-04-17 22:42] VITALS: BP 217/114
[2023-04-17 22:45] LABS: BASO # 0.1 10^3/uL (0.0-0.2); BASO % 0.6 % (0.0-1.0); EOS # 0.1 10^3/uL (0.0-0.5); EOS % 1.4 % (0.0-3.0); HEMATOCRIT 45.6 % (42.0-52.0); HEMOGLOBIN 15.9 g/dl (13.5-17.5); LYMPH # 2.8 10^3/uL (1.5-5.0); LYMPH % 29.4 % (24.0-44.0); MEAN CORPUSCULAR HEMOGLOBIN 31.4 pg (27.0-33.0); MEAN CORPUSCULAR HGB CONC 34.9 g/dl (32.0-36.5); MEAN CORPUSCULAR VOLUME 89.9 fl (80.0-96.0); NEUTROPHILS # 5.4 10^3/uL (1.5-8.5); PLATELET COUNT, AUTOMATED 249 10^3/uL (150-450); RED BLOOD COUNT 5.07 10^6/uL (4.30-6.10); WHITE BLOOD COUNT 9.5 10^3/uL (4.0-10.0)
[2023-04-17 22:56] LABS: INR 0.96
[2023-04-17 23:10] LABS: BLOOD UREA NITROGEN 16 MG/DL (9-23); CALCIUM LEVEL 10.3 MG/DL (8.5-10.1); CARBON DIOXIDE LEVEL 26 MMOL/L (20-31); CHLORIDE LEVEL 104 MMOL/L (98-107); CK-MB VALUE MASS 2.2 NG/ML (<3.6); CPK CREATINE PHOSPHOKINASE 423 U/L (46-171); CREATININE FOR GFR 1.08 MG/DL (0.70-1.30); GLOMERULAR FILTRATION RATE > 60.0 (>56); GLUCOSE, FASTING 111 MG/DL (60-100); MB/CK RELATIVE INDEX 0.52 (< OR =4); POTASSIUM SERUM 3.9 MMOL/L (3.5-5.1); SODIUM LEVEL 137 MMOL/L (136-145)
[2023-04-17] MEDS ORDERED: LABETALOL 100MG/20ML VIAL IV STA (23:10)
[2023-04-17] MEDS ORDERED: LORazepam 2 MG/ML 1ML VIAL IV STA (23:19)
[2023-04-18 01:18] LABS: CK-MB VALUE MASS 1.8 NG/ML (<3.6)
[2023-04-18 01:35] LABS: MB/CK RELATIVE INDEX 0.52 (< OR =4)
[2023-04-18 02:15] VITALS: BP 139/98
== END 2023-04-18 02:32 | disposition home or self-care (01) ==
LOC: M ED 21:42
DX: I10 Essential (primary) hypertension (principal); R07.89 Other chest pain; Z82.49 Family history of ischemic heart disease and other diseases of the circulatory system; Z79.899 Other long term (current) drug therapy; Z88.0 Allergy status to penicillin; Z88.5 Allergy status to narcotic agent
CPT/HCPCS: 71045; 80048; 82550; 82553; 85025; 85610; 93005; 93041; 94760; 96374; 96375; 99285; J2060

== ENCOUNTER → 2023-06-25 | Outpatient (CLI) | payer OTHER | LOC: M LAB 15:31 | PROVIDERS: ATTEND Family Medicine | DX: Z79.899 Other long term (current) drug therapy (principal); Z51.81 Encounter for therapeutic drug level monitoring ==

== ENCOUNTER → 2023-08-13 | Outpatient (REF) | payer OTHER, BC ==
[2023-08-13 13:51] LABS: APPEARANCE, URINE CLEAR (CLEAR); BACTERIA, URINE AUTO NEGATIVE (NEGATIVE); BILIRUBIN, URINE AUTO NEGATIVE (NEGATIVE); BLOOD, URINE BLOOD NEGATIVE (NEGATIVE); COLOR, URINE YELLOW (YELLOW); GLUCOSE, URINE (UA) AUTO NEGATIVE (NEGATIVE); KETONE, URINE AUTO NEGATIVE (NEGATIVE); LEUKOCYTE ESTERASE, URINE AUTO NEGATIVE (NEGATIVE); MUCUS, URINE SMALL (NEGATIVE); NITRITE, URINE AUTO NEGATIVE (NEGATIVE); PROTEIN, URINE AUTO NEGATIVE (NEGATIVE); RBC, URINE AUTO 0 /HPF (0-3); SPECIFIC GRAVITY URINE AUTO 1.013 (1.002-1.035); SQUAMOUS EPITHELIAL CELL UR AU 0 /HPF (0-6); UROBILINOGEN, URINE AUTO 0.2 mg/dL (0.0-2.0); WBC, URINE AUTO 0 /HPF (0-3)
== END ==
LOC: M LAB REF 11:48
PROVIDERS: ATTEND Physician Assistant Medical
DX: N39.0 Urinary tract infection, site not specified (principal)

== ENCOUNTER 2024-03-12 02:46 | Emergency (ER) | payer BC ==
[~2024-03-12] VITALS: Ht 172.7 cm; Wt 113.9 kg
[~2024-03-12 02:46] MED LIST changes: +METF500T13 PO
[2024-03-12 03:24] LABS: BASO # 0.1 10^3/uL (0.0-0.2); EOS # 0.2 10^3/uL (0.0-0.5); EOS % 2.7 % (0.0-3.0); HEMATOCRIT 46.6 % (42.0-52.0); HEMOGLOBIN 16.2 g/dl (13.5-17.5); LYMPH # 2.6 10^3/uL (1.5-5.0); LYMPH % 32.1 % (24.0-44.0); MEAN CORPUSCULAR HEMOGLOBIN 31.2 pg (27.0-33.0); MEAN CORPUSCULAR HGB CONC 34.8 g/dl (32.0-36.5); MEAN CORPUSCULAR VOLUME 89.6 fl (80.0-96.0); MONO # 0.9 10^3/uL (0.0-0.8); MONO % 11.2 % (2.0-8.0); NEUTROPHILS # 4.3 10^3/uL (1.5-8.5); PLATELET COUNT, AUTOMATED 242 10^3/uL (150-450); WHITE BLOOD COUNT 8.2 10^3/uL (4.0-10.0)
[2024-03-12 03:43] LABS: CK-MB VALUE MASS 1.8 NG/ML (<3.6)
[2024-03-12 03:45] LABS: BLOOD UREA NITROGEN 15 MG/DL (9-23); CALCIUM LEVEL 8.9 MG/DL (8.5-10.1); CARBON DIOXIDE LEVEL 21 MMOL/L (20-31); CHLORIDE LEVEL 104 MMOL/L (98-107); CREATININE FOR GFR 0.86 MG/DL (0.70-1.30); GLOMERULAR FILTRATION RATE > 60.0 (>56); GLUCOSE, FASTING 259 MG/DL (60-100); POTASSIUM SERUM 3.7 MMOL/L (3.5-5.1); SODIUM LEVEL 136 MMOL/L (136-145)
[2024-03-12 03:49] LABS: CPK CREATINE PHOSPHOKINASE 332 U/L (46-171); MB/CK RELATIVE INDEX 0.54 (< OR =4)
[2024-03-12 10:15] VITALS: BP 119/66
[2024-03-12 10:19] LABS: CK-MB VALUE MASS 1.7 NG/ML (<3.6); MB/CK RELATIVE INDEX 0.63 (< OR =4)
[2024-03-12 10:30] VITALS: TEMP 98.4; O2SAT 95
== END 2024-03-12 10:33 | disposition home or self-care (01) ==
LOC: M ED 02:46
DX: R07.89 Other chest pain (principal); I10 Essential (primary) hypertension; F41.9 Anxiety disorder, unspecified; Z79.899 Other long term (current) drug therapy; Z88.0 Allergy status to penicillin; Z88.5 Allergy status to narcotic agent

== ENCOUNTER → 2024-10-22 | Outpatient (CLI) | payer BC ==
[~2024-10-22] MED LIST changes: +DOXY-441 PO; -DOXY-443 PO
== END ==
LOC: M RAD 08:48
PROVIDERS: ATTEND Nurse Practitioner Family
DX: H53.8 Other visual disturbances (principal); R20.0 Anesthesia of skin; I65.23 Occlusion and stenosis of bilateral carotid arteries

== ENCOUNTER 2024-10-29 20:04 | Emergency (ER) | payer BC ==
[~2024-10-29] VITALS: Ht 172.7 cm; Wt 111.4 kg
[~2024-10-29 20:04] MED LIST changes: +ALPR0.5T3 PO
[2024-10-29 21:13] LABS: BASO # 0.1 10^3/uL (0.0-0.2); BASO % 0.6 % (0.0-1.0); EOS # 0.2 10^3/uL (0.0-0.5); EOS % 2.2 % (0.0-3.0); HEMOGLOBIN 15.1 g/dl (13.5-17.5); LYMPH # 1.9 10^3/uL (1.5-5.0); LYMPH % 25.1 % (24.0-44.0); MEAN CORPUSCULAR HEMOGLOBIN 30.4 pg (27.0-33.0); MEAN CORPUSCULAR HGB CONC 33.6 g/dl (32.0-36.5); MEAN CORPUSCULAR VOLUME 90.5 fl (80.0-96.0); MONO # 0.8 10^3/uL (0.0-0.8); MONO % 10.1 % (2.0-8.0); NEUTROPHILS # 4.7 10^3/uL (1.5-8.5); NEUTROPHILS % 61.2 % (36.0-66.0); PLATELET COUNT, AUTOMATED 211 10^3/uL (150-450); RED BLOOD COUNT 4.97 10^6/uL (4.30-6.10); WHITE BLOOD COUNT 7.7 10^3/uL (4.0-10.0)
[2024-10-29 21:26] LABS: INR 0.99; PARTIAL THROMBOPLASTIN TIME 26.3 SECONDS (24.8-34.2); PROTHROMBIN TIME 13.4 SECONDS (12.5-14.5)
[2024-10-29 21:33] LABS: CK-MB VALUE MASS 1.7 NG/ML (<3.6)
[2024-10-29 21:35] LABS: ALBUMIN 3.8 G/DL (3.2-5.2); ALKALINE PHOSPHATASE 117 U/L (40-129); ALT/SGPT 71 U/L (7.0-40); AST/SGOT 29 U/L (<34); BILIRUBIN,DIRECT 0.2 MG/DL (<0.4); BILIRUBIN,TOTAL 0.8 MG/DL (0.3-1.2); BLOOD UREA NITROGEN 14 MG/DL (9-23); CALCIUM LEVEL 9.5 MG/DL (8.5-10.1); CARBON DIOXIDE LEVEL 23 MMOL/L (20-31); CHLORIDE LEVEL 105 MMOL/L (98-107); CPK CREATINE PHOSPHOKINASE 331 U/L (46-171); CREATININE FOR GFR 1.03 MG/DL (0.70-1.30); GLOMERULAR FILTRATION RATE > 60.0 (>56); GLUCOSE, FASTING 188 MG/DL (60-100); MB/CK RELATIVE INDEX 0.51 (< OR =4); POTASSIUM SERUM 3.8 MMOL/L (3.5-5.1); SODIUM LEVEL 139 MMOL/L (136-145); TOTAL PROTEIN 6.8 G/DL (5.7-8.2)
[2024-10-29 21:36] LABS: THYROID STIMULATING HORMONE 1.979 uIU/ML (0.55-4.78)
[2024-10-29 22:28] LABS: CK-MB VALUE MASS 1.7 NG/ML (<3.6)
[2024-10-29] MEDS: ALPRAZolam 0.5 MG TAB PO ONE (23:11)
[2024-10-29 23:12] LABS: MB/CK RELATIVE INDEX 0.5 (< OR =4)
[2024-10-29] MEDS ORDERED: LOSA100T46 PO (23:16)
[2024-10-29] MEDS ORDERED: ROSU10TA61 PO (23:16)
[2024-10-29] MEDS ORDERED: HOME MED LIST COMPLETE! XX SCH (23:20)
[2024-10-30 00:50] LABS: CK-MB VALUE MASS 1.7 NG/ML (<3.6)
[2024-10-30 00:53] LABS: MB/CK RELATIVE INDEX 0.58 (< OR =4)
[2024-10-30 02:17] VITALS: BP 139/80; TEMP 97.9; O2SAT 98
[2024-11-02 16:37] LABS: LYME TOTAL ANTIBODY CIA <= 0.90 Index (<=0.90)
== END 2024-10-30 02:17 | disposition home or self-care (01) ==
LOC: M ED 20:04
DX: R07.89 Other chest pain (principal); H53.9 Unspecified visual disturbance; I10 Essential (primary) hypertension; E66.9 Obesity, unspecified; F41.9 Anxiety disorder, unspecified; M10.9 Gout, unspecified; Z79.899 Other long term (current) drug therapy; Z88.0 Allergy status to penicillin; Z88.5 Allergy status to narcotic agent

== ENCOUNTER → 2024-12-09 | Outpatient (REF) | payer BC ==
[~2024-12-09] MED LIST changes: +LOSA100T46 PO; +ROSU10TA61 PO
== END ==
LOC: M LAB REF 12:10
PROVIDERS: ATTEND Nurse Practitioner Family
DX: R68.82 Decreased libido (principal); R53.83 Other fatigue

== ENCOUNTER → 2024-12-30 | Outpatient (CLI) | payer BC | LOC: M EKG 13:57 | PROVIDERS: ATTEND Registered Nurse | DX: R00.2 Palpitations (principal) ==

== ENCOUNTER → 2025-01-23 | Outpatient (REF) | payer BC | LOC: M LAB REF 15:41 | PROVIDERS: ATTEND Surgery | DX: L72.0 Epidermal cyst (principal) ==

== ENCOUNTER → 2025-03-11 | Outpatient (CLI) | payer BC | LOC: M CARPUL 15:15 | PROVIDERS: ATTEND Registered Nurse | DX: I77.810 Thoracic aortic ectasia (principal); I50.30 Unspecified diastolic (congestive) heart failure; I31.39 Other pericardial effusion (noninflammatory); I31.8 Other specified diseases of pericardium; I49.8 Other specified cardiac arrhythmias ==

== ENCOUNTER → 2025-06-12 | Outpatient (REF) | payer BC | LOC: M LAB REF 12:19 | PROVIDERS: ATTEND Nurse Practitioner Family | DX: M10.9 Gout, unspecified (principal) ==

== ENCOUNTER 2025-09-29 14:19 | Emergency (ER) | payer BC ==
[~2025-09-29] VITALS: Ht 172.7 cm; Wt 109.6 kg
[~2025-09-29 14:19] MED LIST changes: -COLC0.6T47 PO; +COLC0.6T53 PO; -ROSU10TA61 PO; +ROSU10TA90 PO
[2025-09-29 14:42] LABS: BASO # 0.1 10^3/uL (0.0-0.2); BASO % 0.5 % (0.0-1.0); EOS # 0.1 10^3/uL (0.0-0.5); EOS % 1.1 % (0.0-3.0); LYMPH # 2.2 10^3/uL (1.5-5.0); LYMPH % 22.0 % (24.0-44.0); MONO # 0.9 10^3/uL (0.0-0.8); MONO % 9.2 % (2.0-8.0); NEUTROPHILS # 6.5 10^3/uL (1.5-8.5); NEUTROPHILS % 66.6 % (36.0-66.0); PLATELET COUNT, AUTOMATED 270 10^3/uL (150-450)
[2025-09-29 15:04] LABS: CK-MB VALUE MASS 2.6 NG/ML (<3.6)
[2025-09-29 15:05] LABS: CPK CREATINE PHOSPHOKINASE 249.0 U/L (46-171); MB/CK RELATIVE INDEX 1.04 (< OR =4)
[2025-09-29 15:06] LABS: CALCIUM LEVEL 9.4 MG/DL (8.5-10.1); CARBON DIOXIDE LEVEL 25.0 MMOL/L (20-31); CHLORIDE LEVEL 105.0 MMOL/L (98-107); CREATININE FOR GFR 1.11 MG/DL (0.70-1.30); GLOMERULAR FILTRATION RATE 79.4 (>56); POTASSIUM SERUM 4.0 MMOL/L (3.5-5.1); SODIUM LEVEL 141.0 MMOL/L (136-145)
[2025-09-29] MEDS ORDERED: ISOVUE-370 76% 100 ML VIAL As Ordered ONE (15:53)
[2025-09-29 16:08] LABS: CK-MB VALUE MASS 2.3 NG/ML (<3.6)
[2025-09-29 16:09] LABS: CPK CREATINE PHOSPHOKINASE 243.0 U/L (46-171); MB/CK RELATIVE INDEX 0.94 (< OR =4)
[2025-09-29 17:15] VITALS: BP 159/96; TEMP 98
[2025-09-29 17:19] VITALS: O2SAT 94
== END 2025-09-29 17:29 | disposition home or self-care (01) ==
LOC: M ED 14:19 → EDBD 14:19 → M ED 17:29
DX: R07.9 Chest pain, unspecified (principal); I10 Essential (primary) hypertension; F41.9 Anxiety disorder, unspecified; E66.9 Obesity, unspecified; K76.0 Fatty (change of) liver, not elsewhere classified; Z79.899 Other long term (current) drug therapy; Z88.0 Allergy status to penicillin; Z88.5 Allergy status to narcotic agent
CPT/HCPCS: 71045; 71275; 80048; 82550; 82553; 84484; 85025; 93005; 93041; 94760; 99285; Q9967

== ENCOUNTER → 2025-11-07 | Outpatient (CLI) | payer BC ==
[2025-11-07 11:24] LABS: CALCIUM LEVEL 9.0 MG/DL (8.5-10.1); CARBON DIOXIDE LEVEL 26 MMOL/L (20-31); CHLORIDE LEVEL 105 MMOL/L (98-107); CHOLESTEROL LEVEL 210 MG/DL (<200); CHOLESTEROL RISK RATIO 4.08 (<5); CREATININE FOR GFR 0.97 MG/DL (0.70-1.30); GLOMERULAR FILTRATION RATE > 90.0 (>56); LDL CHOLESTEROL 134.8 MG/DL (<100); MAGNESIUM LEVEL 2.0 MG/DL (1.8-2.4); NON-HDL-C 158.6 MG/DL; POTASSIUM SERUM 4.5 MMOL/L (3.5-5.1); SODIUM LEVEL 138 MMOL/L (136-145); TRIGLYCERIDES LEVEL 119 MG/DL (<150)
== END ==
LOC: M LAB 09:41
PROVIDERS: ATTEND Nurse Practitioner Family
DX: I11.9 Hypertensive heart disease without heart failure (principal); E78.00 Pure hypercholesterolemia, unspecified